=== PATIENT | female | born 1990 ===

== ENCOUNTER 2021-06-24 13:21 | Inpatient (IN) | payer SELFPAY ==
[2021-06-24] MEDS ORDERED: charcoal activated SOLUTION 25 GM/120 ML PO ONE (13:38)
[2021-06-24] MEDS ORDERED: SODIUM CHLORIDE 0.9% 1000 ML 1,000 ML IV ONE ×2 (13:38→14:59)
[2021-06-24] MEDS ORDERED: ETOMIDATE 20 MG/10 ML INJ IV ONE ×2 (14:00→17:11)
[2021-06-24] MEDS ORDERED: ATROPINE 1 MG/ML VIAL IV ONE (14:00)
[2021-06-24] MEDS ORDERED: SUCCINYLCHOLINE CHLORIDE 200 MG/10 ML INJ MDV IV ONE (14:00)
[2021-06-24] MEDS ORDERED: LIP THERAPY VASELINE TP PRN (14:14)
[2021-06-24] MEDS ORDERED: MINERAL OIL/PETROLATUM, WHITE OPHTH OINT 3.5 GM OU PRN (14:14)
[2021-06-24 14:31] LABS: Alanine Aminotransferase 21 units/L (7-56); Albumin 4.4 g/dL (3.9-5); Blood Urea Nitrogen 10 mg/dL (7-17); Hemolysis Index 3
[2021-06-24 14:32] LABS: BUN/Creatinine Ratio 20
[2021-06-24 14:42] LABS: Basophils # (Auto) 0.1 K/mm3 (0.0-0.1); Basophils % (Auto) 0.4 % (0.0-1.8); Eosinophils % (Auto) 0.2 % (0.0-4.3); Hematocrit 42.9 % (30.3-42.9); Hemoglobin 13.9 gm/dl (10.1-14.3); Lymphocytes # (Auto) 2.3 K/mm3 (1.2-5.4); Lymphocytes % (Auto) 12.2 % (13.4-35.0); Mean Corpuscular HGB Conc 32 % (30-34); Mean Corpuscular Volume 77 fl (79-97); Monocytes # (Auto) 0.4 K/mm3 (0.0-0.8); Monocytes % (Auto) 2.4 % (0.0-7.3); Platelet Count 383 K/mm3 (140-440); Red Blood Count 5.58 M/mm3 (3.65-5.03); Red Cell Distribution Width 13.8 % (13.2-15.2)
[2021-06-24] MEDS: LORazepam 2 MG/ML VIAL IV PRN (14:50)
[2021-06-24] MEDS ORDERED: POTASSIUM CHLORIDE 10 MEQ 10 MEQ/100 ML BAG IV ONE (14:59)
[2021-06-24] MEDS ORDERED: LORazepam 100 MG in SODIUM CHLORIDE 0.9% 50 ML, EMPTY BAG 0 ML IV SCH (15:00)
--- NOTE | 2021-06-24 15:15 | XRay Report ---
XR chest 1V ap INDICATION / CLINICAL INFORMATION: ETT placement. COMPARISON: None available. FINDINGS: SUPPORT DEVICES: Endotracheal tube terminates appropriately at the level of the clavicular heads. HEART /PULMONARY VASCULATURE: No significant abnormality. LUNGS / PLEURA: Lungs are clear. No pneumothorax. IMPRESSION: Satisfactory position of endotracheal tube. No acute chest process. Signer Name: Eitan Goins MD Signed: 06/24/2021 3:11 PM Workstation Name: [id number]
[2021-06-24] MEDS: FAMOTIDINE 20 MG/2 ML INJ IV SCH ×2 (15:48→23:47)
[2021-06-24 16:00] LABS: Amphetamine Screen,Urine Negative; Bacteria,Urine 1+ /HPF (Negative); Benzodiazepines Screen,Urine Negative; Bilirubin,Urine NEG (Negative); Blood,Urine SM (Negative); Cannabinoid Screen,Urine Negative; Cocaine Screen,Urine Negative; Color,Urine Yellow (Yellow); Methadone Screen,Urine Negative; Mucus,Urine 1+ /HPF; Opiate Screen,Urine Negative; Protein,Urine <15 mg/dL mg/dL (Negative); Urobilinogen,Urine < 2.0 mg/dL (<2.0)
--- NOTE | 2021-06-24 16:15 | Emergency Department Report ---
History of Present Illness - General Chief Complaint: Overdose Stated Complaint: VOMITING Time Seen by Provider: 06/24/21 13:35 Source: patient Mode of arrival: Wheelchair Limitations: No Limitations - History of Present Illness Initial Comments: Patient is a 30-year-old female who took a overdose of a ant killer was called Ortho [employer] Fire ant killer with an active ingredient is Acephate, an organophsphate. Patient poured some of the granules and a Coca-Cola and drink this as a suicide attempt. Patient initially awake and alert with some mild slurred speech on her arrival and was able to state that she is having trouble with her . Over 5 to 10-minute time. The patient became more more lethargic and was unable to give any further history. Is unknown whether the patient took any other medications at the time of the overdose. Intent: suicide attempt Context: Intentional Overdose: relationship problems Treatments Prior to Arrival: none - Related Data Allergies Allergy/AdvReac Type Severity Reaction Status Date / Time No Known Allergies Allergy Verified 06/24/21 14:24 ED Review of Systems ROS: Stated complaint: VOMITING Other details as noted in HPI Comment: All other systems reviewed and negative ED Physical Exam - General Limitations: No Limitations General appearance: alert, lethargic, other (Patient slowly becoming more lethargic during the history and physical) - Head Head exam: Present: atraumatic, normocephalic - Eye Eye exam: Present: normal appearance, PERRL, EOMI - ENT ENT exam: Present: mucous membranes moist - Neck Neck exam: Present: normal inspection - Respiratory Respiratory exam: Present: normal lung sounds bilaterally. Absent: respiratory distress, wheezes, rales, rhonchi - Cardiovascular Cardiovascular Exam: Present: regular rate, normal rhythm, normal heart sounds. Absent: systolic murmur, diastolic murmur, rubs, gallop - GI/Abdominal GI/Abdominal exam: Present: soft, normal bowel sounds. Absent: distended, tenderness, guarding, rebound - Extremities Exam Extremities exam: Present: normal inspection - Back Exam Back exam: Present: normal inspection - Neurological Exam Neurological exam: Present: alert, oriented X3 - Psychiatric Psychiatric exam: Present: normal affect, normal mood - Skin Skin exam: Present: warm, dry, intact, normal color. Absent: rash ED Course Vital Signs 06/24/21 06/24/21 06/24/21 13:31 14:01 14:15 Temperature 97.5 F L Pulse Rate 109 H 110 H Respiratory 18 20 17 Rate Blood Pressure 136/88 146/91 O2 Sat by Pulse 97 97 98 Oximetry 06/24/21 06/24/21 06/24/21 14:30 14:45 14:51 Temperature Pulse Rate 95 H 111 H 104 H Respiratory 24 13 Rate Blood Pressure 151/91 150/100 153/97 O2 Sat by Pulse 100 100 100 Oximetry 06/24/21 06/24/21 06/24/21 15:00 15:15 15:30 Temperature Pulse Rate 93 H 106 H 110 H Respiratory 17 17 15 Rate Blood Pressure 153/97 153/99 132/88 O2 Sat by Pulse 100 100 100 Oximetry 06/24/21 15:45 Temperature Pulse Rate 103 H Respiratory 16 Rate Blood Pressure 128/88 O2 Sat by Pulse 100 Oximetry - Reevaluation(s) Reevaluation #1: 06/24/21 16:54 Patient very quickly became very lethargic to the point where shaking her aggressively only resulted in her opening her eyes briefly and then closing them again. Patient lungs were clear however her respiratory drive was decreasing slightly. There was worried that the patient would not be able to maintain her own airway and decision was made to intubate the patient. Please see the procedure note. Reevaluation #2: 06/24/21 16:55 Spoke with the scale manager from poison control. The recommendation is to c ontinue to monitor the patient and give supportive care. we are to monitor the patient for bradycardia decreased oxygen saturation increased diarrhea or rails and if any of these persist to call poison control back to get further recommendations. Patient did receive 2 mg of atropine prior to intubation secondary to the fact that the agent she overdosed on his organophosphate. It is possible the patient has not had any increase bronchospasm or increased secretions because she had already received atropine. We will continue to monitor. - Intubation Time Out Performed: Yes Sedative: Etomidate Paralytic: Succinylcholine Laryngoscope: fiberoptic video scope Size: 3 ET Tube Size: 7.5 Tube Secured Depth (cm): 22 Tube Secured Location: lips Tube Placement Confirmation: visualized tube passing t, equal breath sounds bilat, no breath sounds over epi, confirmation by capnometr Patient Tolerated Procedure: well Intubation Complications: none ED Medical Decision Making - Lab Data Result diagrams: 06/24/21 13:38 06/24/21 13:38 Lab Results 06/24/21 06/24/21 06/24/21 Range/Units 13:38 13:38 13:38 WBC 18.6 H (4.5-11.0) K/mm3 RBC 5.58 H (3.65-5.03) M/mm3 Hgb 13.9 (10.1-14.3) gm/dl Hct 42.9 (30.3-42.9) % MCV 77 L (79-97) fl MCH 25 L (28-32) pg MCHC 32 (30-34) % RDW 13.8 (13.2-15.2) % Plt Count 383 (140-440) K/mm3 Lymph % (Auto) 12.2 L (13.4-35.0) % [place] % (Auto) 2.4 (0.0-7.3) % Eos % (Auto) 0.2 (0.0-4.3) % Baso % (Auto) 0.4 (0.0-1.8) % Lymph # (Auto) 2.3 (1.2-5.4) K/mm3 [place] # (Auto) 0.4 (0.0-0.8) K/mm3 Eos # (Auto) 0.0 (0.0-0.4) K/mm3 Baso # (Auto) 0.1 (0.0-0.1) K/mm3 Seg Neutrophils % 84.8 H (40.0-70.0) % Seg Neutrophils # 15.7 H (1.8-7.7) K/mm3 ABG pH (7.350-7.450) pH Units ABG pCO2 mm Hg ABG pO2 (80.0-90.0) mm Hg ABG HCO3 (20.0-26.0) mmol/L ABG O2 Saturation (95.0-99.0) % ABG O2 Content (0.0-44) ABG Base Excess (-2.0-3.0) mmol/L ABG Hemoglobin (12.0-16.0) gm/dl ABG Carboxyhemoglobin (0.0-5.0) % ABG Methemoglobin (0.0-1.5) % Oxyhemoglobin (95.0-99.0) % FiO2 % Sodium 138 (137-145) mmol/L Potassium 2.6 L* (3.6-5.0) mmol/L Chloride 100.5 (98-107) mmol/L Carbon Dioxide 20 L (22-30) mmol/L Anion Gap 20 mmol/L BUN 10 (7-17) mg/dL Creatinine 0.5 L (0.6-1.2) mg/dL Estimated GFR > 60 ml/min BUN/Creatinine Ratio 20 % Glucose 228 H (65-100) mg/dL Calcium 9.0 (8.4-10.2) mg/dL Total Bilirubin 0.40 (0.1-1.2) mg/dL AST 19 (5-40) units/L ALT 21 (7-56) units/L Alkaline Phosphatase 90 (35-129) units/L Total Protein 8.3 H (6.3-8.2) g/dL Albumin 4.4 (3.9-5) g/dL Albumin/Globulin Ratio 1.1 % Lipase 19 (13-60) units/L Urine Color (Yellow) Urine Turbidity (Clear) Urine pH (5.0-7.0) Ur Specific Howard (1.003-1.030) Urine Protein (Negative) mg/dL Urine Glucose (UA) (Negative) mg/dL Urine Ketones (Negative) mg/dL Urine Blood (Negative) Urine Nitrite (Negative) Urine Bilirubin (Negative) Urine Urobilinogen (<2.0) mg/dL Ur Leukocyte Esterase (Negative) Urine WBC (Auto) (0.0-6.0) /HPF Urine RBC (Auto) (0.0-6.0) /HPF U Epithel Cells (Auto) (0-13.0) /HPF Urine Bacteria (Auto) (Negative) /HPF Urine WBC Clumps /HPF Urine Mucus /HPF Urine Yeast (Budding) /HPF Urine HCG, Qual (Negative) Salicylates (2.8-20.0) mg/dL Urine Opiates Screen Urine Methadone Screen Acetaminophen (10.0-30.0) ug/mL Ur Barbiturates Screen Ur Phencyclidine Scrn Ur Amphetamines Screen U Benzodiazepines Scrn Urine Cocaine Screen U Marijuana (THC) Screen Drugs of Abuse Note Plasma/Serum Alcohol (0-0.07) % 06/24/21 06/24/21 06/24/21 Range/Units 13:39 13:57 13:57 WBC (4.5-11.0) K/mm3 RBC (3.65-5.03) M/mm3 Hgb (10.1-14.3) gm/dl Hct (30.3-42.9) % MCV (79-97) fl MCH (28-32) pg MCHC (30-34) % RDW (13.2-15.2) % Plt Count (140-440) K/mm3 Lymph % (Auto) (13.4-35.0) % [place] % (Auto) (0.0-7.3) % Eos % (Auto) (0.0-4.3) % Baso % (Auto) (0.0-1.8) % Lymph # (Auto) (1.2-5.4) K/mm3 [place] # (Auto) (0.0-0.8) K/mm3 Eos # (Auto) (0.0-0.4) K/mm3 Baso # (Auto) (0.0-0.1) K/mm3 Seg Neutrophils % (40.0-70.0) % Seg Neutrophils # (1.8-7.7) K/mm3 ABG pH (7.350-7.450) pH Units ABG pCO2 mm Hg ABG pO2 (80.0-90.0) mm Hg ABG HCO3 (20.0-26.0) mmol/L ABG O2 Saturation (95.0-99.0) % ABG O2 Content (0.0-44) ABG Base Excess (-2.0-3.0) mmol/L ABG Hemoglobin (12.0-16.0) gm/dl ABG Carboxyhemoglobin (0.0-5.0) % ABG Methemoglobin (0.0-1.5) % Oxyhemoglobin (95.0-99.0) % FiO2 % Sodium (137-145) mmol/L Potassium (3.6-5.0) mmol/L Chloride (98-107) mmol/L Carbon Dioxide (22-30) mmol/L Anion Gap mmol/L BUN (7-17) mg/dL Creatinine (0.6-1.2) mg/dL Estimated GFR ml/min BUN/Creatinine Ratio % Glucose (65-100) mg/dL Calcium (8.4-10.2) mg/dL Total Bilirubin (0.1-1.2) mg/dL AST (5-40) units/L ALT (7-56) units/L Alkaline Phosphatase (35-129) units/L Total Protein (6.3-8.2) g/dL Albumin (3.9-5) g/dL Albumin/Globulin Ratio % Lipase (13-60) units/L Urine Color (Yellow) Urine Turbidity (Clear) Urine pH (5.0-7.0) Ur Specific Howard (1.003-1.030) Urine Protein (Negative) mg/dL Urine Glucose (UA) (Negative) mg/dL Urine Ketones (Negative) mg/dL Urine Blood (Negative) Urine Nitrite (Negative) Urine Bilirubin (Negative) Urine Urobilinogen (<2.0) mg/dL Ur Leukocyte Esterase (Negative) Urine WBC (Auto) (0.0-6.0) /HPF Urine RBC (Auto) (0.0-6.0) /HPF U Epithel Cells (Auto) (0-13.0) /HPF Urine Bacteria (Auto) (Negative) /HPF Urine WBC Clumps /HPF Urine Mucus /HPF Urine Yeast (Budding) /HPF Urine HCG, Qual (Negative) Salicylates < 0.3 L (2.8-20.0) mg/dL Urine Opiates Screen Urine Methadone Screen Acetaminophen 5.0 L (10.0-30.0) ug/mL Ur Barbiturates Screen Ur Phencyclidine Scrn Ur Amphetamines Screen U Benzodiazepines Scrn Urine Cocaine Screen U Marijuana (THC) Screen Drugs of Abuse Note Plasma/Serum Alcohol < 0.01 (0-0.07) % 06/24/21 06/24/21 06/24/21 Range/Units 15:37 15:37 16:04 WBC (4.5-11.0) K/mm3 RBC (3.65-5.03) M/mm3 Hgb (10.1-14.3) gm/dl Hct (30.3-42.9) % MCV (79-97) fl MCH (28-32) pg MCHC (30-34) % RDW (13.2-15.2) % Plt Count (140-440) K/mm3 Lymph % (Auto) (13.4-35.0) % [place] % (Auto) (0.0-7.3) % Eos % (Auto) (0.0-4.3) % Baso % (Auto) (0.0-1.8) % Lymph # (Auto) (1.2-5.4) K/mm3 [place] # (Auto) (0.0-0.8) K/mm3 Eos # (Auto) (0.0-0.4) K/mm3 Baso # (Auto) (0.0-0.1) K/mm3 Seg Neutrophils % (40.0-70.0) % Seg Neutrophils # (1.8-7.7) K/mm3 ABG pH 7.324 L (7.350-7.450) pH Units ABG pCO2 39.9 mm Hg ABG pO2 204.2 H (80.0-90.0) mm Hg ABG HCO3 20.3 (20.0-26.0) mmol/L ABG O2 Saturation 99.2 H (95.0-99.0) % ABG O2 Content 18.5 (0.0-44) ABG Base Excess -5.3 L (-2.0-3.0) mmol/L ABG Hemoglobin 13.2 (12.0-16.0) gm/dl ABG Carboxyhemoglobin 1.2 (0.0-5.0) % ABG Methemoglobin 0.6 (0.0-1.5) % Oxyhemoglobin 97.5 (95.0-99.0) % FiO2 21 % Sodium (137-145) mmol/L Potassium (3.6-5.0) mmol/L Chloride (98-107) mmol/L Carbon Dioxide (22-30) mmol/L Anion Gap mmol/L BUN (7-17) mg/dL Creatinine (0.6-1.2) mg/dL Estimated GFR ml/min BUN/Creatinine Ratio % Glucose (65-100) mg/dL Calcium (8.4-10.2) mg/dL Total Bilirubin (0.1-1.2) mg/dL AST (5-40) units/L ALT (7-56) units/L Alkaline Phosphatase (35-129) units/L Total Protein (6.3-8.2) g/dL Albumin (3.9-5) g/dL Albumin/Globulin Ratio % Lipase (13-60) units/L Urine Color Yellow (Yellow) Urine Turbidity Cloudy (Clear) Urine pH 5.0 (5.0-7.0) Ur Specific Howard 1.020 (1.003-1.030) Urine Protein <15 mg/dl (Negative) mg/dL Urine Glucose (UA) >=500 (Negative) mg/dL Urine Ketones 80 (Negative) mg/dL Urine Blood Sm (Negative) Urine Nitrite Neg (Negative) Urine Bilirubin Neg (Negative) Urine Urobilinogen < 2.0 (<2.0) mg/dL Ur Leukocyte Esterase Lg (Negative) Urine WBC (Auto) 42.0 H (0.0-6.0) /HPF Urine RBC (Auto) 102.0 (0.0-6.0) /HPF U Epithel Cells (Auto) 31.0 H (0-13.0) /HPF Urine Bacteria (Auto) 1+ (Negative) /HPF Urine WBC Clumps Few /HPF Urine Mucus 1+ /HPF Urine Yeast (Budding) 2+ /HPF Urine HCG, Qual Negative (Negative) Salicylates (2.8-20.0) mg/dL Urine Opiates Screen Negative Urine Methadone Screen Negative Acetaminophen (10.0-30.0) ug/mL Ur Barbiturates Screen Negative Ur Phencyclidine Scrn Negative Ur Amphetamines Screen Negative U Benzodiazepines Scrn Negative Urine Cocaine Screen Negative U Marijuana (THC) Screen Negative Drugs of Abuse Note Disclamer Plasma/Serum Alcohol (0-0.07) % - EKG Data -: EKG Interpreted by Wi EKG shows normal: sinus rhythm, axis, intervals, QRS complexes, ST-T waves Rate: normal - EKG Data Interpretation: normal EKG - Radiology Data XR chest 1V ap INDICATION / CLINICAL INFORMATION: ETT placement. COMPARISON: None available. FINDINGS: SUPPORT DEVICES: Endotracheal tube terminates appropriately at the level of the clavicular heads. HEART /PULMONARY VASCULATURE: No significant abnormality. LUNGS / PLEURA: Lungs are clear. No pneumothorax. IMPRESSION: Satisfactory position of endotracheal tube. No acute chest process. Signer Name: Eitan Goins MD Signed: 06/24/2021 3:11 PM Workstation Name: [id number] - Medical Decision Making Patient is a 25-year-old female who took a overdose of a [id number] fire ant killer which has active ingredient which is organophosphate. Patient was intubated secondary to being extremely lethargic. She did receive atropine and up into the time of the patient's admission this is still not had any episodes of bradycardia or increased bronchospasm and fluid in the lungs. Patient is on ventilator with 8 of PEEP which also may be helping with the patient's respiratory status. Patient did have one episode of diarrhea and will continue to monitor. We will call poison control back if the patient becomes bradycardic develops Rales, has decreased O2 saturation on ventilator or requires increase PEEP. Patient mated to the ICU. Critical Care Time: Yes (30) Critical care attestation.: If time is entered above; I have spent that time in minutes in the direct care of this critically ill patient, excluding procedure time. ED Disposition Clinical Impression: Organophosphorus anticholinesterase overdose Qualifiers: Encounter type: initial encounter Injury intent: intentional self-harm Qualified Code(s): T44.0X2A - Poisoning by anticholinesterase agents, intentional self-harm, initial encounter Disposition: ADMITTED INPATIENT Is pt being admited?: Yes Does the pt Need Aspirin: No Condition: Stable Time of Disposition: 17:06
[2021-06-24 16:20] LABS: ABG Base Excess -5.3 mmol/L (-2.0-3.0); ABG HCO3 20.3 mmol/L (20.0-26.0); ABG Methemoglobin 0.6 % (0.0-1.5); ABG Oxygen Saturation 99.2 % (95.0-99.0); ABG PCO2 39.9 mm Hg; ABG PH 7.324 pH Units (7.350-7.450); ABG PO2 204.2 mm Hg (80.0-90.0)
[2021-06-24 16:22] LABS: HCG Qualitative,Urine Negative (Negative)
--- NOTE | 2021-06-24 17:00 | XRay Report ---
XR chest 1V ap INDICATION / CLINICAL INFORMATION: tube placement. COMPARISON: 06/24/2021 FINDINGS: SUPPORT DEVICES: Endotracheal tube terminates approximately 3.5 cm above the cindy. HEART /PULMONARY VASCULATURE: No significant abnormality. LUNGS / PLEURA: No significant pulmonary or pleural abnormality. No pneumothorax. IMPRESSION: Satisfactory position of endotracheal tube. Signer Name: Eitan Goins MD Signed: 06/24/2021 4:55 PM Workstation Name: [id number]
[2021-06-24] MEDS ORDERED: SUCCINYLCHOLINE CHLORIDE 200 MG/10 ML INJ MDV ONE (17:11)
--- NOTE | 2021-06-24 17:35 | History and Physical Report ---
History of Present Illness Date of examination: 06/24/21 Date of admission: 06/24/21 Chief complaint: Ingestion of ant killer 2 hrs ago History of present illness: 30-year-old female with no significant past medical history apparently took a overdose of ant killer called [employer]o [employer] fire ant killer with an active ingredient called acephate which is a organophosphate. Patient reports some unknown quantity of intake of water and drank the contaminated Coke in an attempt to commit suicide. Patient initially awake and alert with some slurred speech on arrival. Patient was stating that she is having trouble with her because of which she did anterior overdose as part of an argument. Patient became more lethargic in the emergency room and was unable to give further history when the ER physician decided to intubate the patient for protection of airway. Poison control was called. IV atropine given to prevent bradycardia and excessive secretions. Patient also has excessive secretions. Patient was intubated in the emergency room. No fever or chills. Past History Past Medical History: No medical history Past Surgical History: No surgical history Social history: lives with family, full code Family history: hypertension Medications and Allergies Allergies Allergy/AdvReac Type Severity Reaction Status Date / Time No Known Allergies Allergy Verified 06/24/21 14:24 Active Meds: Active Medications Famotidine (Famotidine 20 Mg/2 Ml Inj) 20 mg IV BID [facility] Last Admin: 06/24/21 15:48 Dose: 20 mg Documented by: Hydrophilic Ointment (Lip Therapy Vaseline) 1 applic TP Q2HR PRN PRN Reason: Dry Lips Lorazepam 100 mg/ Sodium Chloride/ Miscellaneous Information 100 mls @ 1 mls/hr IV TITR [facility]; Protocol Last Admin: 06/24/21 14:55 Dose: 1 mg/hr, 1 mls/hr Documented by: Propofol (Diprivan 10 Mg/Ml) 1,000 mg in 100 mls @ 3.402 mls/hr IV TITR [facility]; Protocol Last Titration: 06/24/21 16:05 Dose: 45 mcg/kg/min, 30.617 mls/hr Documented by: Lorazepam (Lorazepam 2 Mg/Ml Vial) 2 mg IV Q10MIN PRN PRN Reason: Agitation Last Admin: 06/24/21 14:50 Dose: 2 mg Documented by: Multi-Ingred Cream/Lotion/Oil/Oint (Mineral Oil/Petrolatum, White Ophth Oint 3.5 Gm) 1 applic OU Q4HR PRN PRN Reason: Dry Eye(s) Senna/Docusate Sodium (Sennosides/Docusate Sodium 8.6/50 Mg Tab) 1 tab FEEDTUBE BID [facility] Review of Systems ROS unobtainable: due to endotracheal tube All systems: negative Constitutional: no weight loss, no weight gain, no fever, no chills Breasts: deferred Cardiovascular: shortness of breath Gastrointestinal: nausea, vomiting Integumentary: no rash, no pruritis, no redness, no sores, no wounds, no jaundice, no boils, no blisters Neurological: confusion, no seizures, no syncope Psychiatric: anxiety, disorientation, depression, other (Suicidal) Exam - Constitutional Vitals: Temp Pulse Resp BP Pulse Ox 97.5 F L 103 H 16 128/88 100 06/24/21 13:31 06/24/21 15:45 06/24/21 15:45 06/24/21 15:45 06/24/21 15:45 General appearance: Present: no acute distress, well-nourished - EENT Eyes: Present: miosis ENT: clear oral mucosa - Neck Neck: Present: supple, normal ROM - Respiratory Respiratory effort: normal Respiratory: bilateral: CTA, rhonchi - Cardiovascular Heart rate: 110 Rhythm: regular Heart Sounds: Present: S1 & S2. Absent: rub, click - Extremities Extremities: pulses symmetrical, No edema Peripheral Pulses: within normal limits - Abdominal General gastrointestinal: Present: soft, non-tender, non-distended, normal bowel sounds Female genitourinary: Present: normal - Integumentary Integumentary: Present: clear, warm, dry - Musculoskeletal Musculoskeletal: generalized weakness - Psychiatric Psychiatric: other (Patient intubated) - Neurologic Neurologic: moves all extremities, other (Patient intubated) - Allied Health Allied health notes reviewed: nursing, case management Results - Labs CBC & Chem 7: 06/25/21 05:48 06/25/21 00:03 Labs: Laboratory Last Values WBC 18.6 K/mm3 (4.5-11.0) H 06/24/21 13:38 RBC 5.58 M/mm3 (3.65-5.03) H 06/24/21 13:38 Hgb 13.9 gm/dl (10.1-14.3) 06/24/21 13:38 Hct 42.9 % (30.3-42.9) 06/24/21 13:38 MCV 77 fl (79-97) L 06/24/21 13:38 MCH 25 pg (28-32) L 06/24/21 13:38 MCHC 32 % (30-34) 06/24/21 13:38 RDW 13.8 % (13.2-15.2) 06/24/21 13:38 Plt Count 383 K/mm3 (140-440) 06/24/21 13:38 Lymph % (Auto) 12.2 % (13.4-35.0) L 06/24/21 13:38 [place] % (Auto) 2.4 % (0.0-7.3) 06/24/21 13:38 Eos % (Auto) 0.2 % (0.0-4.3) 06/24/21 13:38 Baso % (Auto) 0.4 % (0.0-1.8) 06/24/21 13:38 Lymph # (Auto) 2.3 K/mm3 (1.2-5.4) 06/24/21 13:38 [place] # (Auto) 0.4 K/mm3 (0.0-0.8) 06/24/21 13:38 Eos # (Auto) 0.0 K/mm3 (0.0-0.4) 06/24/21 13:38 Baso # (Auto) 0.1 K/mm3 (0.0-0.1) 06/24/21 13:38 Seg Neutrophils % 84.8 % (40.0-70.0) H 06/24/21 13:38 Seg Neutrophils # 15.7 K/mm3 (1.8-7.7) H 06/24/21 13:38 ABG pH 7.324 pH Units (7.350-7.450) L 06/24/21 16:04 ABG pCO2 39.9 mm Hg 06/24/21 16:04 ABG pO2 204.2 mm Hg (80.0-90.0) H 06/24/21 16:04 ABG HCO3 20.3 mmol/L (20.0-26.0) 06/24/21 16:04 ABG O2 Saturation 99.2 % (95.0-99.0) H 06/24/21 16:04 ABG O2 Content 18.5 (0.0-44) 06/24/21 16:04 ABG Base Excess -5.3 mmol/L (-2.0-3.0) L 06/24/21 16:04 ABG Hemoglobin 13.2 gm/dl (12.0-16.0) 06/24/21 16:04 ABG Carboxyhemoglobin 1.2 % (0.0-5.0) 06/24/21 16:04 ABG Methemoglobin 0.6 % (0.0-1.5) 06/24/21 16:04 Oxyhemoglobin 97.5 % (95.0-99.0) 06/24/21 16:04 FiO2 21 % 06/24/21 16:04 Sodium 138 mmol/L (137-145) 06/24/21 13:38 Potassium 2.6 mmol/L (3.6-5.0) L* 06/24/21 13:38 Chloride 100.5 mmol/L (98-107) 06/24/21 13:38 Carbon Dioxide 20 mmol/L (22-30) L 06/24/21 13:38 Anion Gap 20 mmol/L 06/24/21 13:38 BUN 10 mg/dL (7-17) 06/24/21 13:38 Creatinine 0.5 mg/dL (0.6-1.2) L 06/24/21 13:38 Estimated GFR > 60 ml/min 06/24/21 13:38 BUN/Creatinine Ratio 20 % 06/24/21 13:38 Glucose 228 mg/dL (65-100) H 06/24/21 13:38 Calcium 9.0 mg/dL (8.4-10.2) 06/24/21 13:38 Total Bilirubin 0.40 mg/dL (0.1-1.2) 06/24/21 13:38 AST 19 units/L (5-40) 06/24/21 13:38 ALT 21 units/L (7-56) 06/24/21 13:38 Alkaline Phosphatase 90 units/L (35-129) 06/24/21 13:38 Total Protein 8.3 g/dL (6.3-8.2) H 06/24/21 13:38 Albumin 4.4 g/dL (3.9-5) 06/24/21 13:38 Albumin/Globulin Ratio 1.1 % 06/24/21 13:38 Lipase 19 units/L (13-60) 06/24/21 13:38 Urine Color Yellow (Yellow) 06/24/21 15:37 Urine Turbidity Cloudy (Clear) 06/24/21 15:37 Urine pH 5.0 (5.0-7.0) 06/24/21 15:37 Ur Specific [place] 1.020 (1.003-1.030) 06/24/21 15:37 Urine Protein <15 mg/dl mg/dL (Negative) 06/24/21 15:37 Urine Glucose (UA) >=500 mg/dL (Negative) 06/24/21 15:37 Urine Ketones 80 mg/dL (Negative) 06/24/21 15:37 Urine Blood Sm (Negative) 06/24/21 15:37 Urine Nitrite Neg (Negative) 06/24/21 15:37 Urine Bilirubin Neg (Negative) 06/24/21 15:37 Urine Urobilinogen < 2.0 mg/dL (<2.0) 06/24/21 15:37 Ur Leukocyte Esterase Lg (Negative) 06/24/21 15:37 Urine WBC (Auto) 42.0 /HPF (0.0-6.0) H 06/24/21 15:37 Urine RBC (Auto) 102.0 /HPF (0.0-6.0) 06/24/21 15:37 U Epithel Cells (Auto) 31.0 /HPF (0-13.0) H 06/24/21 15:37 Urine Bacteria (Auto) 1+ /HPF (Negative) 06/24/21 15:37 Urine WBC Clumps Few /HPF 06/24/21 15:37 Urine Mucus 1+ /HPF 06/24/21 15:37 Urine Yeast (Budding) 2+ /HPF 06/24/21 15:37 Urine HCG, Qual Negative (Negative) 06/24/21 15:37 Salicylates < 0.3 mg/dL (2.8-20.0) L 06/24/21 13:57 Urine Opiates Screen Negative 06/24/21 15:37 Urine Methadone Screen Negative 06/24/21 15:37 Acetaminophen 5.0 ug/mL (10.0-30.0) L 06/24/21 13:57 Ur Barbiturates Screen Negative 06/24/21 15:37 Ur Phencyclidine Scrn Negative 06/24/21 15:37 Ur Amphetamines Screen Negative 06/24/21 15:37 U Benzodiazepines Scrn Negative 06/24/21 15:37 Urine Cocaine Screen Negative 06/24/21 15:37 U Marijuana (THC) Screen Negative 06/24/21 15:37 Drugs of Abuse Note Disclamer 06/24/21 15:37 Plasma/Serum Alcohol < 0.01 % (0-0.07) 06/24/21 13:39 Short CBC 06/24/21 06/25/21 Range/Units 13:38 05:48 WBC 18.6 H 11.6 H (4.5-11.0) K/mm3 Hgb 13.9 13.3 (10.1-14.3) gm/dl Hct 42.9 41.6 (30.3-42.9) % Plt Count 383 397 (140-440) K/mm3 [facility] 06/24/21 06/25/21 13:38 00:03 Sodium 138 141 Potassium 2.6 L* 4.2 D Chloride 100.5 105.6 Carbon Dioxide 20 L 19 L BUN 10 8 Creatinine 0.5 L 0.6 Glucose 228 H 108 H Calcium 9.0 9.6 Liver Function 06/24/21 Range/Units 13:38 Total Bilirubin 0.40 (0.1-1.2) mg/dL AST 19 (5-40) units/L ALT 21 (7-56) units/L Alkaline Phosphatase 90 (35-129) units/L Albumin 4.4 (3.9-5) g/dL Urine 06/24/21 Range/Units 15:37 Urine Color Yellow (Yellow) Urine pH 5.0 (5.0-7.0) Ur Specific [place] 1.020 (1.003-1.030) Urine Protein <15 mg/dl (Negative) mg/dL Urine Glucose (UA) >=500 (Negative) mg/dL - Imaging and Cardiology EKG: report reviewed (Sinus rhythm heart rate of 93/min no acute ST-T wave changes) Chest x-ray: report reviewed (Endotracheal tube in place, suspect left basilar pneumonia) Assessment and Plan Assessment and plan: Critical care statement The high probability OF a clinically significant sudden or life-threatening deterioration of the cardiorespiratory system and endocrine system required my full and direct attention, intervention and postoperative management. The aggregate critical care time was 40 minutes. The time is in addition to time spent performing reported procedures but includes the followin: Data review and interpretation 2: Patient assessment and monitoring of vital signs 3: Documentation 4:: Medication orders and management Advance Directives: Yes (Full code) VTE prophylaxis?: Chemical Plan of care discussed with patient/family: Yes - Patient Problems (1) Organophosphorus anticholinesterase overdose Current Visit: Yes Status: Acute Qualifiers: Encounter type: initial encounter Injury intent: intentional self-harm Qualified Code(s): T44.0X2A - Poisoning by anticholinesterase agents, intentional self-harm, initial encounter Plan to address problem: Poison control was called IV atropine for now Patient intubated for protection of airway IV fluids Repeat chemistries every 6-8 hours Vent management (2) Sepsis Current Visit: Yes Status: Acute Plan to address problem: Leukocytosis present Left basilar pneumonia is present IV Rocephin and Zithromax initiated (3) Left lower lobe pneumonia Current Visit: Yes Status: Acute Plan to address problem: Possible aspiration Patient initiated on Rocephin and azithromycin (4) Acute respiratory failure with hypoxia Current Visit: Yes Status: Acute Plan to address problem: Patient intubated for protection of airway Vent management (5) Hypokalemia Current Visit: Yes Status: Acute Plan to address problem: Supplemented IV potassium also given (6) UTI (urinary tract infection) Current Visit: Yes Status: Acute Qualifiers: Urinary tract infection type: acute cystitis Plan to address problem: IV Rocephin pending cultures (7) Hyperglycemia Current Visit: Yes Status: Acute Plan to address problem: Possible type 2 diabetes Check hemoglobin A1c coverage for now (8) DVT prophylaxis Current Visit: Yes Status: Acute Plan to address problem: On anticoagulation and GI prophylaxis
[2021-06-24] MEDS ORDERED: MORPHINE 2 MG/1 ML INJ IV PRN (17:39)
[2021-06-24] MEDS ORDERED: ACETAMINOPHEN 650 MG RECT SUPP PR PRN (17:39)
[2021-06-24] MEDS ORDERED: ATROPINE 1 MG/ML VIAL IV PRN (17:42)
[2021-06-24] MEDS: ENOXAPARIN 40 MG/0.4 ML INJ SUB-Q SCH (18:33)
[2021-06-24] MEDS: SENNOSIDES/DOCUSATE SODIUM 8.6/50 MG TAB FEEDTUBE SCH (23:47)
[2021-06-25 01:20] LABS: Blood Urea Nitrogen 8 mg/dL (7-17); Calcium 9.6 mg/dL (8.4-10.2); Hemolysis Index 11
[2021-06-25 01:51] LABS: BUN/Creatinine Ratio 13
[2021-06-25] MEDS ORDERED: METOPROLOL TARTRATE 5 MG/5 ML INJ IV ONE ×2 (02:44→05:30)
--- NOTE | 2021-06-25 03:57 | XRay Report ---
CHEST 1 VIEW 06/25/2021 2:35 AM INDICATION / CLINICAL INFORMATION: follow up respiratory failure. COMPARISON: Previous day. FINDINGS: SUPPORT DEVICES: Unchanged. HEART / MEDIASTINUM: No significant abnormality. LUNGS / PLEURA: Right lung clear. Retrocardiac opacity on the left. No pneumothorax. ADDITIONAL FINDINGS: No significant additional findings. IMPRESSION: Suspect left basilar pneumonia. Signer Name: Larry George MD Signed: 06/25/2021 3:53 AM Workstation Name: [id number]
[2021-06-25 06:18] LABS: Basophils % (Auto) 0.1 % (0.0-1.8); Eosinophils % (Auto) 0.1 % (0.0-4.3); Hematocrit 41.6 % (30.3-42.9); Hemoglobin 13.3 gm/dl (10.1-14.3); Lymphocytes # (Auto) 1.2 K/mm3 (1.2-5.4); Lymphocytes % (Auto) 10.6 % (13.4-35.0); Mean Corpuscular HGB Conc 32 % (30-34); Mean Corpuscular Volume 79 fl (79-97); Monocytes # (Auto) 1.1 K/mm3 (0.0-0.8); Monocytes % (Auto) 9.9 % (0.0-7.3); Platelet Count 397 K/mm3 (140-440); Red Cell Distribution Width 14.1 % (13.2-15.2)
[2021-06-25 06:45] LABS: Alanine Aminotransferase 18 units/L (7-56); Albumin 4.2 g/dL (3.9-5); Blood Urea Nitrogen 9 mg/dL (7-17); Calcium 9.6 mg/dL (8.4-10.2); Hemolysis Index 4
[2021-06-25 06:49] LABS: BUN/Creatinine Ratio 13
[2021-06-25] MEDS: D5W/0.9% NACL 1,000 ML IV SCH (09:08)
[2021-06-25] MEDS: FAMOTIDINE 20 MG/2 ML INJ IV SCH ×2 (09:12→21:27)
[2021-06-25] MEDS: ENOXAPARIN 40 MG/0.4 ML INJ SUB-Q SCH (09:12)
[2021-06-25] MEDS: SENNOSIDES/DOCUSATE SODIUM 8.6/50 MG TAB FEEDTUBE SCH ×2 (09:13→21:27)
--- NOTE | 2021-06-25 12:37 | Consultation ---
History of Present Illness - Reason for Consult Consult date: 06/25/21 Reason for consult: OD - Chief Complaint Chief complaint: Ingestion of ant killer 2 hrs ago - History of Present Psychiatric Illness Per Note: 30-year-old female with no significant past medical history apparently took a overdose of ant killer called Ortho [employer] fire ant killer with an active ingredient called acephate which is a organophosphate. Patient reports some unknown quantity of intake of water and drank the contaminated Coke in an attempt to commit suicide. Patient initially awake and alert with some slurred speech on arrival. Patient was stating that she is having trouble with her because of which she did anterior overdose as part of an argument. Patient became more lethargic in the emergency room and was unable to give further history when the ER physician decided to intubate the patient for protection of airway. Poison control was called. IV atropine given to prevent bradycardia and excessive secretions. Patient also has excessive secretions. Patient was intubated in the emergency room. No fever or chills. The patient was seen today. She is intubated; unable to participate in assessment. PAST PSYCHIATRIC HISTORY- Unable to assess PAST MEDICAL HISTORY: Unable to assess Family Psychiatric History: None reported or documented SOCIAL HISTORY-Unable to assess REVIEW OF SYSTEMS-Unable to assess MENTAL STATUS EXAMINATION-Unable to assess Assessment (1) Major depressive disorder (2) (3) Plan continue 1013 Sitter: Defer to primary Medical: Per primary Disposition: Recommend acute inpatient psychiatric treatment Will follow for medication management Case staffed with Dr. Angelo Medications and Allergies Allergies Medications and Allergies Allergies Allergy/AdvReac Type Severity Reaction Status Date / Time No Known Allergies Allergy Verified 06/24/21 14:24 Active Meds: Active Medications Acetaminophen (Acetaminophen 650 Mg Rect Supp) 650 mg TN Q4H PRN PRN Reason: Pain MILD(1-3)/Fever >100.5/MOE Atropine Sulfate (Atropine 1 Mg/Ml Vial) 1 mg IV Q6H PRN PRN Reason: Bradycardia Enoxaparin Sodium (Enoxaparin 40 Mg/0.4 Ml Inj) 40 mg SUB-Q QDAY [facility] Last Admin: 06/25/21 09:12 Dose: 40 mg Documented by: Famotidine (Famotidine 20 Mg/2 Ml Inj) 20 mg IV BID [facility] Last Admin: 06/25/21 09:12 Dose: 20 mg Documented by: Hydromorphone HCl (Hydromorphone 1 Mg/1 Ml Inj) 0.5 mg IV Q3H PRN PRN Reason: Pain , Severe (7-10) Hydrophilic Ointment (Lip Therapy Vaseline) 1 applic TP Q2HR PRN PRN Reason: Dry Lips Lorazepam 100 mg/ Sodium Chloride/ Miscellaneous Information 100 mls @ 1 mls/hr IV TITR [facility]; Protocol Last Admin: 06/24/21 14:55 Dose: 1 mg/hr, 1 mls/hr Documented by: Propofol (Diprivan 10 Mg/Ml) 1,000 mg in 100 mls @ 3.402 mls/hr IV TITR K[facility]Y; Protocol Last Admin: 06/25/21 10:11 Dose: 50 mcg/kg/min, 34.019 mls/hr Documented by: Dextrose/Sodium Chloride (D5ns) 1,000 mls @ 125 mls/hr IV DIRECT [facility] Last Admin: 06/25/21 09:08 Dose: 125 mls/hr Documented by: Lorazepam (Lorazepam 2 Mg/Ml Vial) 2 mg IV Q10MIN PRN PRN Reason: Agitation Last Admin: 06/24/21 14:50 Dose: 2 mg Documented by: Morphine Sulfate (Morphine 2 Mg/1 Ml Inj) 2 mg IV Q4H PRN PRN Reason: Pain, Moderate (4-6) Multi-Ingred Cream/Lotion/Oil/Oint (Mineral Oil/Petrolatum, White Ophth Oint 3.5 Gm) 1 applic OU Q4HR PRN PRN Reason: Dry Eye(s) Ondansetron HCl (Ondansetron 4 Mg/2 Ml Inj) 4 mg IV Q8H PRN PRN Reason: Nausea And Vomiting Senna/Docusate Sodium (Sennosides/Docusate Sodium 8.6/50 Mg Tab) 1 tab FEEDTUBE BID [facility] Last Admin: 06/25/21 09:13 Dose: Not Given Documented by: Sodium Chloride (Sodium Chloride 0.9% 10 Ml Flush Syringe) 10 ml IV BID [facility] Last Admin: 06/25/21 09:13 Dose: 10 ml Documented by: Sodium Chloride (Sodium Chloride 0.9% 10 Ml Flush Syringe) 10 ml IV PRN PRN PRN Reason: LINE FLUSH Mental Status Exam - Vital signs Last Vital Signs Temp 98.8 F 06/25/21 12:29 Pulse 113 H 06/25/21 12:14 Resp 16 06/25/21 12:00 BP 146/96 06/25/21 12:14 Pulse Ox 100 06/25/21 12:14 Results Result Diagrams: 06/25/21 05:48 06/25/21 05:48 Abnormal lab results 06/24/21 06/24/21 06/24/21 Range/Units 13:38 13:38 13:57 WBC 18.6 H (4.5-11.0) K/mm3 RBC 5.58 H (3.65-5.03) M/mm3 MCV 77 L (79-97) fl MCH 25 L (28-32) pg Lymph % (Auto) 12.2 L (13.4-35.0) % [place] % (Auto) (0.0-7.3) % [place] # (Auto) (0.0-0.8) K/mm3 Seg Neutrophils % 84.8 H (40.0-70.0) % Seg Neutrophils # 15.7 H (1.8-7.7) K/mm3 ABG pH (7.350-7.450) pH Units POC ABG pO2 (83-108) mmHg ABG pO2 (80.0-90.0) mm Hg ABG O2 Saturation (95.0-99.0) % ABG Base Excess (-2.0-3.0) mmol/L ABG Oxyhemoglobin (94-98) ABG Glucose (65-95) mg/dL Carboxyhemoglobin (0.5-1.5) Potassium 2.6 L* (3.6-5.0) mmol/L Carbon Dioxide 20 L (22-30) mmol/L Creatinine 0.5 L (0.6-1.2) mg/dL Glucose 228 H (65-100) mg/dL POC Glucose (70-105) mg/dL Total Protein 8.3 H (6.3-8.2) g/dL Arterial Blood Glucose (65-95) mg/dL Urine WBC (Auto) (0.0-6.0) /HPF U Epithel Cells (Auto) (0-13.0) /HPF Salicylates < 0.3 L (2.8-20.0) mg/dL Acetaminophen (10.0-30.0) ug/mL 06/24/21 06/24/21 06/24/21 Range/Units 13:57 15:37 16:04 WBC (4.5-11.0) K/mm3 RBC (3.65-5.03) M/mm3 MCV (79-97) fl MCH (28-32) pg Lymph % (Auto) (13.4-35.0) % [place] % (Auto) (0.0-7.3) % [place] # (Auto) (0.0-0.8) K/mm3 Seg Neutrophils % (40.0-70.0) % Seg Neutrophils # (1.8-7.7) K/mm3 ABG pH 7.324 L (7.350-7.450) pH Units POC ABG pO2 (83-108) mmHg ABG pO2 204.2 H (80.0-90.0) mm Hg ABG O2 Saturation 99.2 H (95.0-99.0) % ABG Base Excess -5.3 L (-2.0-3.0) mmol/L ABG Oxyhemoglobin (94-98) ABG Glucose (65-95) mg/dL Carboxyhemoglobin (0.5-1.5) Potassium (3.6-5.0) mmol/L Carbon Dioxide (22-30) mmol/L Creatinine (0.6-1.2) mg/dL Glucose (65-100) mg/dL POC Glucose (70-105) mg/dL Total Protein (6.3-8.2) g/dL Arterial Blood Glucose (65-95) mg/dL Urine WBC (Auto) 42.0 H (0.0-6.0) /HPF U Epithel Cells (Auto) 31.0 H (0-13.0) /HPF Salicylates (2.8-20.0) mg/dL Acetaminophen 5.0 L (10.0-30.0) ug/mL 06/24/21 06/25/21 06/25/21 Range/Units 23:15 00:03 03:18 WBC (4.5-11.0) K/mm3 RBC (3.65-5.03) M/mm3 MCV (79-97) fl MCH (28-32) pg Lymph % (Auto) (13.4-35.0) % [place] % (Auto) (0.0-7.3) % [place] # (Auto) (0.0-0.8) K/mm3 Seg Neutrophils % (40.0-70.0) % Seg Neutrophils # (1.8-7.7) K/mm3 ABG pH (7.350-7.450) pH Units POC ABG pO2 177.1 H (83-108) mmHg ABG pO2 (80.0-90.0) mm Hg ABG O2 Saturation (95.0-99.0) % ABG Base Excess (-2.0-3.0) mmol/L ABG Oxyhemoglobin 99.0 H (94-98) ABG Glucose 213 H (65-95) mg/dL Carboxyhemoglobin 0.1 L (0.5-1.5) Potassium (3.6-5.0) mmol/L Carbon Dioxide 19 L (22-30) mmol/L Creatinine (0.6-1.2) mg/dL Glucose 108 H (65-100) mg/dL POC Glucose 107 H (70-105) mg/dL Total Protein (6.3-8.2) g/dL Arterial Blood Glucose 213 H (65-95) mg/dL Urine WBC (Auto) (0.0-6.0) /HPF U Epithel Cells (Auto) (0-13.0) /HPF Salicylates (2.8-20.0) mg/dL Acetaminophen (10.0-30.0) ug/mL 06/25/21 06/25/21 Range/Units 05:48 05:48 WBC 11.6 H (4.5-11.0) K/mm3 RBC 5.30 H (3.65-5.03) M/mm3 MCV (79-97) fl MCH 25 L (28-32) pg Lymph % (Auto) 10.6 L (13.4-35.0) % [place] % (Auto) 9.9 H (0.0-7.3) % [place] # (Auto) 1.1 H (0.0-0.8) K/mm3 Seg Neutrophils % 79.3 H (40.0-70.0) % Seg Neutrophils # 9.2 H (1.8-7.7) K/mm3 ABG pH (7.350-7.450) pH Units POC ABG pO2 (83-108) mmHg ABG pO2 (80.0-90.0) mm Hg ABG O2 Saturation (95.0-99.0) % ABG Base Excess (-2.0-3.0) mmol/L ABG Oxyhemoglobin (94-98) ABG Glucose (65-95) mg/dL Carboxyhemoglobin (0.5-1.5) Potassium (3.6-5.0) mmol/L Carbon Dioxide 20 L (22-30) mmol/L Creatinine (0.6-1.2) mg/dL Glucose 106 H (65-100) mg/dL POC Glucose (70-105) mg/dL Total Protein (6.3-8.2) g/dL Arterial Blood Glucose (65-95) mg/dL Urine WBC (Auto) (0.0-6.0) /HPF U Epithel Cells (Auto) (0-13.0) /HPF Salicylates (2.8-20.0) mg/dL Acetaminophen (10.0-30.0) ug/mL All other labs normal.
--- NOTE | 2021-06-25 12:40 | Consultation ---
History of Present Illness Consult date: 06/25/21 Requesting physician: KYLE GUILLAUME Reason for consult: other (Possible Organophosphate overdose) History of present illness: PULMONARY/CCM CONSULT NOTE (Full dictation # [id number]) Please see dictated notes for full details Past History Past Medical History: No medical history Past Surgical History: No surgical history Social history: lives with family, full code Family history: hypertension Medications and Allergies Allergies Allergy/AdvReac Type Severity Reaction Status Date / Time No Known Allergies Allergy Verified 06/24/21 14:24 Active Meds: Active Medications Acetaminophen (Acetaminophen 650 Mg Rect Supp) 650 mg OR Q4H PRN PRN Reason: Pain MILD(1-3)/Fever >100.5/MOE Atropine Sulfate (Atropine 1 Mg/Ml Vial) 1 mg IV Q6H PRN PRN Reason: Bradycardia Enoxaparin Sodium (Enoxaparin 40 Mg/0.4 Ml Inj) 40 mg SUB-Q QDAY KAREY Last Admin: 06/25/21 09:12 Dose: 40 mg Documented by: Famotidine (Famotidine 20 Mg/2 Ml Inj) 20 mg IV BID KAREY Last Admin: 06/25/21 09:12 Dose: 20 mg Documented by: Hydromorphone HCl (Hydromorphone 1 Mg/1 Ml Inj) 0.5 mg IV Q3H PRN PRN Reason: Pain , Severe (7-10) Hydrophilic Ointment (Lip Therapy Vaseline) 1 applic TP Q2HR PRN PRN Reason: Dry Lips Lorazepam 100 mg/ Sodium Chloride/ Miscellaneous Information 100 mls @ 1 mls/hr IV TITR KAREY; Protocol Last Admin: 06/24/21 14:55 Dose: 1 mg/hr, 1 mls/hr Documented by: Propofol (Diprivan 10 Mg/Ml) 1,000 mg in 100 mls @ 3.402 mls/hr IV TITR KAREY; Protocol Last Admin: 06/25/21 10:11 Dose: 50 mcg/kg/min, 34.019 mls/hr Documented by: Dextrose/Sodium Chloride (D5ns) 1,000 mls @ 125 mls/hr IV DIRECT KAREY Last Admin: 06/25/21 09:08 Dose: 125 mls/hr Documented by: Lorazepam (Lorazepam 2 Mg/Ml Vial) 2 mg IV Q10MIN PRN PRN Reason: Agitation Last Admin: 06/24/21 14:50 Dose: 2 mg Documented by: Morphine Sulfate (Morphine 2 Mg/1 Ml Inj) 2 mg IV Q4H PRN PRN Reason: Pain, Moderate (4-6) Multi-Ingred Cream/Lotion/Oil/Oint (Mineral Oil/Petrolatum, White Ophth Oint 3.5 Gm) 1 applic OU Q4HR PRN PRN Reason: Dry Eye(s) Ondansetron HCl (Ondansetron 4 Mg/2 Ml Inj) 4 mg IV Q8H PRN PRN Reason: Nausea And Vomiting Senna/Docusate Sodium (Sennosides/Docusate Sodium 8.6/50 Mg Tab) 1 tab FEEDTUBE BID [facility] Last Admin: 06/25/21 09:13 Dose: Not Given Documented by: Sodium Chloride (Sodium Chloride 0.9% 10 Ml Flush Syringe) 10 ml IV BID [facility] Last Admin: 06/25/21 09:13 Dose: 10 ml Documented by: Sodium Chloride (Sodium Chloride 0.9% 10 Ml Flush Syringe) 10 ml IV PRN PRN PRN Reason: LINE FLUSH Physical Examination Vital signs: Vital Signs Temp Pulse Resp BP Pulse Ox 97.5 F L 109 H 18 136/88 97 06/24/21 13:31 06/24/21 13:31 06/24/21 13:31 06/24/21 13:31 06/24/21 13:31 Results - Laboratory Findings CBC and BMP: 06/25/21 05:48 06/25/21 05:48 ABG ABG pH 7.328 (7.320-7.450) 06/25/21 03:18 POC ABG pCO2 35.4 mmHg (32.0-48.0) 06/25/21 03:18 ABG pCO2 39.9 mm Hg 06/24/21 16:04 POC ABG pO2 177.1 mmHg (83-108) H 06/25/21 03:18 ABG pO2 204.2 mm Hg (80.0-90.0) H 06/24/21 16:04 POC ABG HCO3 18.2 06/25/21 03:18 ABG O2 Saturation 99.2 (0-100) 06/25/21 03:18 Abnormal lab findings: Abnormal Labs 06/24/21 06/24/21 06/24/21 13:38 13:38 13:57 WBC 18.6 H RBC 5.58 H MCV 77 L MCH 25 L Lymph % (Auto) 12.2 L [place] % (Auto) [place] # (Auto) Seg Neutrophils % 84.8 H Seg Neutrophils # 15.7 H ABG pH POC ABG pO2 ABG pO2 ABG O2 Saturation ABG Base Excess ABG Oxyhemoglobin ABG Glucose Carboxyhemoglobin Potassium 2.6 L* Carbon Dioxide 20 L Creatinine 0.5 L Glucose 228 H POC Glucose Total Protein 8.3 H Arterial Blood Glucose Urine WBC (Auto) U Epithel Cells (Auto) Salicylates < 0.3 L Acetaminophen 06/24/21 06/24/21 06/24/21 13:57 15:37 16:04 WBC RBC MCV MCH Lymph % (Auto) [place] % (Auto) [place] # (Auto) Seg Neutrophils % Seg Neutrophils # ABG pH 7.324 L POC ABG pO2 ABG pO2 204.2 H ABG O2 Saturation 99.2 H ABG Base Excess -5.3 L ABG Oxyhemoglobin ABG Glucose Carboxyhemoglobin Potassium Carbon Dioxide Creatinine Glucose POC Glucose Total Protein Arterial Blood Glucose Urine WBC (Auto) 42.0 H U Epithel Cells (Auto) 31.0 H Salicylates Acetaminophen 5.0 L 06/24/21 06/25/21 06/25/21 23:15 00:03 03:18 WBC RBC MCV MCH Lymph % (Auto) [place] % (Auto) [place] # (Auto) Seg Neutrophils % Seg Neutrophils # ABG pH POC ABG pO2 177.1 H ABG pO2 ABG O2 Saturation ABG Base Excess ABG Oxyhemoglobin 99.0 H ABG Glucose 213 H Carboxyhemoglobin 0.1 L Potassium Carbon Dioxide 19 L Creatinine Glucose 108 H POC Glucose 107 H Total Protein Arterial Blood Glucose 213 H Urine WBC (Auto) U Epithel Cells (Auto) Salicylates Acetaminophen 06/25/21 06/25/21 05:48 05:48 WBC 11.6 H RBC 5.30 H MCV MCH 25 L Lymph % (Auto) 10.6 L [place] % (Auto) 9.9 H [place] # (Auto) 1.1 H Seg Neutrophils % 79.3 H Seg Neutrophils # 9.2 H ABG pH POC ABG pO2 ABG pO2 ABG O2 Saturation ABG Base Excess ABG Oxyhemoglobin ABG Glucose Carboxyhemoglobin Potassium Carbon Dioxide 20 L Creatinine Glucose 106 H POC Glucose Total Protein Arterial Blood Glucose Urine WBC (Auto) U Epithel Cells (Auto) Salicylates Acetaminophen
--- NOTE | 2021-06-25 13:11 | Progress Note ---
Assessment and Plan Assessment and plan: This is a [id number] female with no known past medical history who presented in the ED after she ingested an ant killer agent called [employer] fire ant killer as s suicide attempt. Patient was intubated in the ED for airway protection due to increase lethargy and excessive secretions. Patient received 2mg of IV Atropine and charcoal activated in the ED. Patient was admitted into the ICU for further management. Hospital Course to Date: 06/25/21- Patient is intubated and sedated on propofol gtt RASS-2, following commands. s/p charcal activate and Atropine in the ED. Not much secretions this am, OGT to LIS with minimal output. Plan for SAT and SBT trial. CCM on consult. Will continue to monitor renal function, LFTs, and electrolytes. Assessment and Plan #Neuro:Sedated - Patient intubated and sedated on propofol gtt, RASS-2 - Titrate sedation for RASS goal 0 to -2 - Daily SAT and SBT per CCM - Avoid benzodiazepine's, reduce the possibility of delirium - Prn analgesia for CPOT greater than 3 - Maintenance of sleep-wake cycle #Tachycardia #Organophosphorus anticholinesterase overdose - Most likely compensatory - Received atropine and charcoal activated - ST on the monitor - Normotensive - Maintain adequate perfusion - Continue rehydration with cont. IVF - Continue blood pressure monitor per protocol - Maintain MAP above 65 - Continue AC- Lovenox SubQ and SCDs for VTE proph #Acute Respiratory Failure #Organophosphorus anticholinesterase overdose #Left Lower Lobe Pneumonia - 06/25 CXR with suspect left basilar pneumonia - ETT on 06/24 for airway protection - Vent settings: PRVC- 40%,6,16,450 - COVID swab pending - AM ABG noted - CCM consulted, appreciate recommendations - VAP bundle addressed - Aspiration precaution HOB above 30 - Daily SBT and SAT trials as tolerated - Daily ABG and CXR - Continue SPO2 monitoring for SPO2 goal above 92% #Organophosphorus anticholinesterase overdose - s/p Atropine and Charcoal activated - Poison control following - Minimal secretions today - Continue PRN Atropine - Continue OGT to LIS - Keep NPO for now - Continue rehydration with cont. IVF - continue PPI- Protonix - Continue BR- Senokot #Hypokalemia- improved - K as low as 2.6, 3.9 this am - Monitor and replace electrolytes as needed - Strict I&Os #Left lower lobe pneumonia #UTI (urinary tract infection) #Leukocytosis - 06/25 CXR with suspect left basilar pneumonia - 06/24 sputum cult pending, UA- +WBcs, urine culture pending - WBCS as high as 18, downtrending-->11.6 this am - COVID swab pending - Continue rehydration with cont. IVF - Continue Empiric ABx - Continue to F/U on B.cult - Daily CBC monitor - Consider ID consult if febrile or/and if leukocytosis reoccur #Endo:Hyperglycemia - A1c pending - SSI Q6hrs - While critically ill target blood glucose of 140-180 - Avoid hypoglycemia The high probability of a clinically significant, sudden or life threatening deterioration of the [multiple] system(s) required my full and direct attention, intervention and personal management. The aggregate critical care time was [60] minutes. This time is in addition to time spent performing reported procedures but includes the following: [x] Data Review and interpretation [x] Patient assessment and monitoring of vital signs [x] Documentation [x] Medication orders and management Disposition Plan: ICU Total Time Spent with Patient (Minutes): 60 History Interval history: Patient seen and examined at the bedside. Intubated and sedated on propofol gtt, RASS -2. ALIS overnight Hospitalist Physical - Constitutional Vitals: Temp Pulse Resp BP Pulse Ox 98.8 F 113 H 16 146/96 100 06/25/21 12:29 06/25/21 12:14 06/25/21 12:00 06/25/21 12:14 06/25/21 12:14 General appearance: Present: no acute distress, well-nourished, other (Intubated and sedated) - EENT Eyes: Present: PERRL ENT: clear oral mucosa - Respiratory Respiratory effort: normal Respiratory: bilateral: diminished - Cardiovascular Rhythm: regular Heart Sounds: Present: S1 & S2 - Extremities Extremities: no ischemia, pulses intact, pulses symmetrical Peripheral Pulses: within normal limits - Abdominal General gastrointestinal: soft, non-tender, normal bowel sounds - Integumentary Integumentary: Present: clear, warm, dry - Psychiatric Psychiatric: other (Intubated and sedated) - Neurologic Neurologic: other (Intubated and sedated) Results - Labs CBC & Chem 7: 06/25/21 05:48 06/25/21 05:48 Labs: Laboratory Last Values WBC 11.6 K/mm3 (4.5-11.0) H 06/25/21 05:48 RBC 5.30 M/mm3 (3.65-5.03) H 06/25/21 05:48 Hgb 13.3 gm/dl (10.1-14.3) 06/25/21 05:48 Hct 41.6 % (30.3-42.9) 06/25/21 05:48 MCV 79 fl (79-97) 06/25/21 05:48 MCH 25 pg (28-32) L 06/25/21 05:48 MCHC 32 % (30-34) 06/25/21 05:48 RDW 14.1 % (13.2-15.2) 06/25/21 05:48 Plt Count 397 K/mm3 (140-440) 06/25/21 05:48 Lymph % (Auto) 10.6 % (13.4-35.0) L 06/25/21 05:48 [place] % (Auto) 9.9 % (0.0-7.3) H 06/25/21 05:48 Eos % (Auto) 0.1 % (0.0-4.3) 06/25/21 05:48 Baso % (Auto) 0.1 % (0.0-1.8) 06/25/21 05:48 Lymph # (Auto) 1.2 K/mm3 (1.2-5.4) 06/25/21 05:48 [place] # (Auto) 1.1 K/mm3 (0.0-0.8) H 06/25/21 05:48 Eos # (Auto) 0.0 K/mm3 (0.0-0.4) 06/25/21 05:48 Baso # (Auto) 0.0 K/mm3 (0.0-0.1) 06/25/21 05:48 Seg Neutrophils % 79.3 % (40.0-70.0) H 06/25/21 05:48 Seg Neutrophils # 9.2 K/mm3 (1.8-7.7) H 06/25/21 05:48 ABG pH 7.328 (7.320-7.450) 06/25/21 03:18 POC ABG pCO2 35.4 mmHg (32.0-48.0) 06/25/21 03:18 ABG pCO2 39.9 mm Hg 06/24/21 16:04 POC ABG pO2 177.1 mmHg (83-108) H 06/25/21 03:18 ABG pO2 204.2 mm Hg (80.0-90.0) H 06/24/21 16:04 POC ABG HCO3 18.2 06/25/21 03:18 ABG HCO3 20.3 mmol/L (20.0-26.0) 06/24/21 16:04 ABG O2 Saturation 99.2 (0-100) 06/25/21 03:18 ABG O2 Content 18.5 (0.0-44) 06/24/21 16:04 POC ABG Base Excess -6.9 06/25/21 03:18 ABG Base Excess -5.3 mmol/L (-2.0-3.0) L 06/24/21 16:04 ABG Hemoglobin 14.5 (12.0-17.5) 06/25/21 03:18 ABG Oxyhemoglobin 99.0 (94-98) H 06/25/21 03:18 ABG Carboxyhemoglobin 1.2 % (0.0-5.0) 06/24/21 16:04 ABG Methemoglobin 0.1 (0.0-1.5) 06/25/21 03:18 ABG Sodium 136.2 mmol/L (136.0-145.0) 06/25/21 03:18 ABG Potassium 3.4 mmol/L (3.40-4.50) 06/25/21 03:18 ABG Chloride 107.0 mmol/L (98-107) 06/25/21 03:18 ABG Glucose 213 mg/dL (65-95) H 06/25/21 03:18 Oxyhemoglobin 97.5 % (95.0-99.0) 06/24/21 16:04 Carboxyhemoglobin 0.1 (0.5-1.5) L 06/25/21 03:18 FiO2 21 % 06/24/21 16:04 FiO2 % 40.0 06/25/21 03:18 Sodium 140 mmol/L (137-145) 06/25/21 05:48 Potassium 3.9 mmol/L (3.6-5.0) 06/25/21 05:48 Chloride 104.6 mmol/L (98-107) 06/25/21 05:48 Carbon Dioxide 20 mmol/L (22-30) L 06/25/21 05:48 Anion Gap 19 mmol/L 06/25/21 05:48 BUN 9 mg/dL (7-17) 06/25/21 05:48 Creatinine 0.7 mg/dL (0.6-1.2) 06/25/21 05:48 Estimated GFR > 60 ml/min 06/25/21 05:48 BUN/Creatinine Ratio 13 % 06/25/21 05:48 Glucose 106 mg/dL (65-100) H 06/25/21 05:48 POC Glucose 107 mg/dL (70-105) H 06/24/21 23:15 Calcium 9.6 mg/dL (8.4-10.2) 06/25/21 05:48 Total Bilirubin 0.40 mg/dL (0.1-1.2) 06/25/21 05:48 AST 26 units/L (5-40) 06/25/21 05:48 ALT 18 units/L (7-56) 06/25/21 05:48 Alkaline Phosphatase 86 units/L (35-129) 06/25/21 05:48 Total Protein 8.2 g/dL (6.3-8.2) 06/25/21 05:48 Albumin 4.2 g/dL (3.9-5) 06/25/21 05:48 Albumin/Globulin Ratio 1.1 % 06/25/21 05:48 Lipase 19 units/L (13-60) 06/24/21 13:38 Arterial Blood Glucose 213 mg/dL (65-95) H 06/25/21 03:18 Urine Color Yellow (Yellow) 06/24/21 15:37 Urine Turbidity Cloudy (Clear) 06/24/21 15:37 Urine pH 5.0 (5.0-7.0) 06/24/21 15:37 Ur Specific [place] 1.020 (1.003-1.030) 06/24/21 15:37 Urine Protein <15 mg/dl mg/dL (Negative) 06/24/21 15:37 Urine Glucose (UA) >=500 mg/dL (Negative) 06/24/21 15:37 Urine Ketones 80 mg/dL (Negative) 06/24/21 15:37 Urine Blood Sm (Negative) 06/24/21 15:37 Urine Nitrite Neg (Negative) 06/24/21 15:37 Urine Bilirubin Neg (Negative) 06/24/21 15:37 Urine Urobilinogen < 2.0 mg/dL (<2.0) 06/24/21 15:37 Ur Leukocyte Esterase Lg (Negative) 06/24/21 15:37 Urine WBC (Auto) 42.0 /HPF (0.0-6.0) H 06/24/21 15:37 Urine RBC (Auto) 102.0 /HPF (0.0-6.0) 06/24/21 15:37 U Epithel Cells (Auto) 31.0 /HPF (0-13.0) H 06/24/21 15:37 Urine Bacteria (Auto) 1+ /HPF (Negative) 06/24/21 15:37 Urine WBC Clumps Few /HPF 06/24/21 15:37 Urine Mucus 1+ /HPF 06/24/21 15:37 Urine Yeast (Budding) 2+ /HPF 06/24/21 15:37 Urine HCG, Qual Negative (Negative) 06/24/21 15:37 Salicylates < 0.3 mg/dL (2.8-20.0) L 06/24/21 13:57 Urine Opiates Screen Negative 06/24/21 15:37 Urine Methadone Screen Negative 06/24/21 15:37 Acetaminophen 5.0 ug/mL (10.0-30.0) L 06/24/21 13:57 Ur Barbiturates Screen Negative 06/24/21 15:37 Ur Phencyclidine Scrn Negative 06/24/21 15:37 Ur Amphetamines Screen Negative 06/24/21 15:37 U Benzodiazepines Scrn Negative 06/24/21 15:37 Urine Cocaine Screen Negative 06/24/21 15:37 U Marijuana (THC) Screen Negative 06/24/21 15:37 Drugs of Abuse Note Disclamer 06/24/21 15:37 Plasma/Serum Alcohol < 0.01 % (0-0.07) 06/24/21 13:39 Briones/IV: Voiding Method Indwelling Catheter Active Medications - Current Medications Current Medications: Generic Name Dose Route Start Last Admin Trade Name Freq PRN Reason Stop Dose Admin Acetaminophen 650 mg 06/24/21 17:39 Acetaminophen [address] Q4H PRN Pain MILD(1-3)/Fever >100.5/MOE Atropine Sulfate 1 mg 06/24/21 17:42 Atropine 1 Mg/Ml Vial IV Q6H PRN Bradycardia Enoxaparin Sodium 40 mg 06/24/21 18:00 06/25/21 09:12 Enoxaparin 40 Mg/0.4 Ml Inj SUB-Q 40 mg QDAY KAREY Administration Famotidine 20 mg 06/24/21 15:00 06/25/21 09:12 Famotidine 20 Mg/2 Ml Inj IV 20 mg BID KAREY Administration Hydromorphone HCl 0.5 mg 06/24/21 17:39 Hydromorphone 1 Mg/1 Ml Inj IV Q3H PRN Pain , Severe (7-10) Hydrophilic Ointment 1 applic 06/24/21 14:14 Lip Therapy Vaseline TP Q2HR PRN Dry Lips Lorazepam 100 mg/ Sodium 100 mls @ 1 mls/hr 06/24/21 15:00 06/24/21 14:55 Chloride/ Miscellaneous IV 1 mg/hr Information TITR KAREY 1 mls/hr Administration Protocol 1 MG/HR Propofol 1,000 mg in 100 mls @ 3.402 mls/hr 06/24/21 15:00 06/25/21 10:11 Diprivan 10 Mg/Ml IV 50 mcg/kg/min TITR KAREY 34.019 mls/hr Administration Protocol 5 MCG/KG/MIN Dextrose/Sodium Chloride 1,000 mls @ 125 mls/hr 06/24/21 18:00 06/25/21 09:08 D5ns IV 125 mls/hr DIRECT KAREY Administration Lorazepam 2 mg 06/24/21 14:14 06/24/21 14:50 Lorazepam 2 Mg/Ml Vial IV 2 mg Q10MIN PRN Administration Agitation Morphine Sulfate 2 mg 06/24/21 17:39 Morphine 2 Mg/1 Ml Inj IV Q4H PRN Pain, Moderate (4-6) Multi-Ingred Cream/Lotion/Oil/Oint 1 applic 06/24/21 14:14 Mineral Oil/Petrolatum, White Ophth Oint 3.5 Gm OU Q4HR PRN Dry Eye(s) Ondansetron HCl 4 mg 06/24/21 17:39 Ondansetron 4 Mg/2 Ml Inj IV Q8H PRN Nausea And Vomiting Senna/Docusate Sodium 1 tab 06/24/21 22:00 06/25/21 09:13 Sennosides/Docusate Sodium 8.6/50 Mg Tab FEEDTUBE Not Given BID KAREY Sodium Chloride 10 ml 06/24/21 22:00 06/25/21 09:13 Sodium Chloride 0.9% 10 Ml Flush Syringe IV 10 ml BID KAREY Administration Sodium Chloride 10 ml 06/24/21 17:39 Sodium Chloride 0.9% 10 Ml Flush Syringe IV PRN PRN LINE FLUSH Nutrition/Malnutrition Assess - Dietary Evaluation Nutrition/Malnutrition Findings: Nutrition Notes Start: 06/25/21 10:38 Freq: Status: Active Protocol: Document 06/25/21 10:38 IGNACIO (Rec: 06/25/21 10:49 IGNACIO [id number]) Nutrition Notes Need for Assessment generated from: MD Order Initial or Follow up Assessment Current Diagnosis Sepsis,Respiratory Failure Other Pertinent Diagnosis Attempted suicide, LLL pneu, UTI Current Diet No diet ordered Labs/Tests Reviewed Pertinent Medications D5NS at 125ml/hr, Ativan gtt, Senokot, Propofol at 34.019ml/ hr (provides 898 kcal) Height 5 ft 2 in Weight 113.398 kg [place] Body Weight (kg) 50.00 BMI 45.7 Weight Status Morbidly Obese Subjective/Other Information RD consulted to evaluate nutritional intake. Pt intubated to protect airway. She attempted suicide via drinking ant killer. Burn Absent Trauma Absent Minimum of two criteria No #1 Nutrition Diagnosis Swallowing difficulty Etiology [facility] [place] [facility] ventilation As Evidenced by Signs and Symptoms pt NPO Is patient on ventilator? Yes Is Patient Ambulatory and/or Out of Bed No REE-([facility] [facility]-confined to bed) 2182.008 Kcal/Kg value to use for calculation 13 Approximate Energy Requirements Using 1474 kcal/Kg Calculation Used for Recommendations Kcal/kg Additional Notes Pro needs up to 2.5g/kg IBW: up to 125g/day Fluid needs 1ml/kcal Nutrition Intervention Change Diet Order: Advance diet when medically feasible Nutrition Support: Recommend Osmolite 1.5 if unable to advance diet Goal #1 Either advance diet or start EN support within next 72 hrs to meet nutrient needs Anticipated Discharge Needs: None identified at this time Follow-Up By: 06/28/21 Additional Comments F/U: Diet advancement vs TF consult, vent status
[2021-06-25] MEDS ORDERED: SIMPLE SYRUP 15 ML FEEDTUBE PRN ×2 (13:50)
[2021-06-25] MEDS ORDERED: LIPASE 10,500/PROTEASE 25,000/AMYLASE 43,750 (UNITS) DR CAP FEEDTUBE PRN (13:50)
[2021-06-25] MEDS ORDERED: SODIUM BICARBONATE 325 MG TAB FEEDTUBE PRN (13:50)
[2021-06-25] MEDS: LORazepam 2 MG/ML VIAL IV PRN ×2 (14:10→21:26)
[2021-06-25] MEDS ORDERED: DEXTROSE 50% IN WATER (25GM) 50 ML SYRINGE IV PRN (14:55)
[2021-06-25 15:38] LABS: ABG Base Excess -3.3 mmol/L (-2.0-3.0); ABG HCO3 20.5 mmol/L (20.0-26.0); ABG PCO2 33.2 mm Hg; ABG PH 7.407 pH Units (7.350-7.450)
[2021-06-25 15:41] LABS: ABG Methemoglobin 0.5 % (0.0-1.5); ABG Oxygen Saturation 99.3 % (95.0-99.0)
[2021-06-25] MEDS: cefTRIAXone/NS 2 GM/100 ML 2 GM/100 ML BAG IV SCH (15:41)
[2021-06-25] MEDS: AZITHROMYCIN/NS 500 MG/250 ML 500 MG/250 ML BAG IV SCH (16:06)
--- NOTE | 2021-06-25 16:47 | XRay Report ---
ABDOMEN 1 VIEW INDICATION / CLINICAL INFORMATION: Feeding tube placement. COMPARISON: None available. FINDINGS: Enteric catheter tip and side-port project within the distal stomach. Signer Name: Eitan Goins MD Signed: 06/25/2021 4:43 PM Workstation Name: [id number]
--- NOTE | 2021-06-25 16:58 | Consultation ---
DATE OF CONSULTATION: 06/25/2021 PULMONARY CRITICAL CARE CONSULT CONSULTING PHYSICIAN: Dr. Hernandez. REASON FOR CONSULTATION: Organophosphate poisoning presumed. CHIEF COMPLAINT AND HISTORY OF PRESENT ILLNESS: As follows: The patient is a 30-year-old obese female, past medical history unknown really, but in the context of problems with her relationship, she reportedly drank an ant killer called Ortho Orthene fire killer with activity ingredient of acephate, which happens to be an organophosphate of moderate persistence in the system. She says she pod some of the granules in [employer] and took it for suicide at time. When she came into the Emergency Room, she was awake, but she had slower speech. She became more and more lethargic. She was unable to give any further history. The Emergency Room physician discussed with poison control and based on his own clinical examination, he decided that because of the rapid rate which she was deteriorating, she was intubated just to protect her airway in particular. We are asked to assist with management. She received 2 mg of atropine prior to intubation. When I stopped by to see her, she was resting in bed. We had just held the propofol drip she was on and she was following questions appropriately. Staff denied any significant signs and symptoms of cholinergic storm so to say. There were no sialorrhea and no excessive secretions. She has not had significant bradyarrhythmias. She has not had any seizure disorder. She was following commands appropriately. She has not had any nausea or vomiting. She has not had any diarrhea. With regard to the patient's tobacco use/abuse history, that history is unknown. The above is as much of the history of presentation as I have. PAST MEDICAL HISTORY: Obesity. PAST SURGICAL HISTORY: Unknown. MEDICATIONS: She was on at the time I stopped by to see according to the medication administration record included the following: Tylenol 650 mg per rectum q. 4 hours p.r.n. mild pain or fever, atropine 1 mg IV q. 6 hours p.r.n. bradycardia, Lovenox 40 mg subQ daily, Pepcid 20 mg IV b.i.d., Dilaudid 0.5 mg IV q. 3 hours p.r.n. severe pain, Ativan 2 mg IV q. 10 minutes p.r.n. agitation, lorazepam drip had earlier been started at 1 mg per hour, morphine sulfate 2 mg IV q. 4 hours p.r.n. moderate pain, Zofran 4 mg IV q. 8 hours p.r.n. nausea and vomiting. Propofol drip was now on hold. Senna docusate 1 tablet p.o. b.i.d. ALLERGIES: No known drug allergies. DIET: Obese lady, acute weight loss or gain history is unknown. FAMILY AND SOCIAL HISTORY: Apparently lives in the community, was having some problems in her relationship. Alcohol, tobacco or illicit drug use or abuse history are unknown. FAMILY HISTORY: Otherwise unknown. REVIEW OF SYSTEMS: Unobtainable secondary to the patient's medical and mental condition. Since she has been here, no gross hematochezia or melena, no gross hematuria, no hematemesis, no witnessed seizures. Review of systems otherwise unobtainable or as in body of history above. PHYSICAL EXAMINATION: VITAL SIGNS: At presentation, she was afebrile, temperature 97.5 degrees Fahrenheit, pulse of 109, respiratory rate of 18, blood pressure 136/88, O2 sats were 97%, inspired oxygen concentration at that time was not recorded. When I saw her O2 sats were 98% that was on the [facility], AC mode of ventilation, tidal volume 500, rate of 16 and a PEEP of 6 and 40% FiO2. GENERAL: She is a young, obese female. Normocephalic, atraumatic. Resting in bed without significant patient-ventilator dyssynchrony. HEAD, EYES, EARS, NOSE, AND THROAT: Anicteric. No conjunctival erythema. Oropharynx was moist. Endotracheal tube was taped at the lips around 23 cm. No gross jugular venous distention, no thyromegaly. Grossly, there were no palpable lymph nodes in the supraclavicular or submandibular lymph node chains. LUNGS: Auscultation of both lung carpenter were actually unremarkable. Lungs were clear bilaterally with good bilateral air movement. No wheezing. HEART: Sounds 1 and 2 are heard at the time of my evaluation, regular rate and rhythm without overt rubs or murmurs. She actually was tachycardic with a pulse of about 122. ABDOMEN: Soft, full, protuberant. Bowel sounds are positive, nontender, no palpable hepatosplenomegaly. EXTREMITIES: Without overt digital clubbing or cyanosis, no pedal edema. Pedal pulses are 2+ bilaterally. NEUROLOGIC: Pupils are equal, round, about 3 mm, reactive to light. Extraocular muscle movements were intact. She moves all 4 extremities spontaneously. SKIN: Her skin was of normal turgor and the areas examined without overt cellulitis or rash. Please see the wound care nurses' notes for full description of her skin. PSYCHIATRIC: Mood and affect were anxious, but she followed commands appropriately. Her judgment and insight is definitely suspect. LABORATORY DATA: From my review are as follows: Admission white count 18,600, hemoglobin 13.9, hematocrit 42.9, platelet count 383. Venous blood gas most recently shows a pH of 7.33, pCO2 of 35, pO2 of 177 on 40% FiO2 on the above-mentioned settings. Serum sodium at presentation was 138, potassium 2.6, chloride 101, bicarbonate 20, BUN 10, creatinine 0.5, glucose was 228. Liver function tests are within normal limits. Urinalysis showed large leukocyte esterase, 42 white cells per high-power field. Urine drug screen presumptive negative. Tylenol, aspirin and alcohol levels were nondetectable. No blood cultures. A chest x-ray has been reviewed, essentially clear lung carpenter, endotracheal tube tip is at the level of the clavicular heads, no gross pneumothorax, no gross bony fracture. ASSESSMENT: 1. Possible drug overdose. 2. Organophosphate poisoning. 3. Acute hypoxemic respiratory failure, on mechanical ventilatory support. 4. Major depressive disorder. 5. Leukocytosis. 6. Mild metabolic acidosis. 7. Hypokalemia at presentation. 8. Oropharyngeal dysphagia. 9. Possible urinary tract infection. PLAN: I will put her on spontaneous breathing trial, and she does not have significantly increased secretions at this point. She, however, was swallowed moderate persistent organophosphate and as she has release of the agent into her bloodstream, possibly from adipose tissue, she could well have worsening symptoms, but more likely perhaps just prolongation of her symptoms. I think it is prudent to observe her the whole day on a pressure support trial, keep her intubated and ensure that first she meets weaning criteria and passes a spontaneous breathing trial, but also ensure that her symptoms do not increase and ensure that she is not overtly excited from a PENCILLER standpoint and is easy to control. The presumptive plan will be to rest overnight on full support, do a quick 2-hour SVT in the morning and extubate. If she remains stable, we will continue to monitor for all the possible toxicities associated with her ingestion including cardiac monitoring, respiratory monitoring and monitoring of her clinically. Enteral nutrition will be the feeding modality of choice. A psychiatric consult has been placed. Potassium has been corrected. I will await urine culture before considering all for signs and symptoms of a significant infection before beginning empiric antibiotic therapy. She is appropriately on GI and DVT prophylaxis. Flu and pneumonia vaccination will be addressed per protocol. Thank you very much for the consult, Dr. Hernandez. We will follow along and make further recommendations as picture progresses/becomes clearer. She is critically ill on life-sustaining interventions including mechanical ventilatory support at very high risk of from neurologic system decompensation and cardiopulmonary system decompensation. At this time, I spent about 35-40 minutes of critical care time without overlap and excluding any procedural time that may be necessary. TID: [id number] RECEIPT: [id number] KAIA/BO/ARMANDO
[2021-06-25] MEDS: INSULIN LISPRO 100 UNIT/ML SUB-Q SCH (18:15)
[2021-06-26] MEDS: INSULIN LISPRO 100 UNIT/ML SUB-Q SCH (00:24)
[2021-06-26] MEDS: LORazepam 2 MG/ML VIAL IV PRN ×2 (01:30→06:41)
[2021-06-26] MEDS: D5W/0.9% NACL 1,000 ML IV SCH ×3 (02:37→21:20)
[2021-06-26 08:00] LABS: Mean Corpuscular HGB Conc 30 % (30-34); Mean Corpuscular Volume 85 fl (79-97); Platelet Count 213 K/mm3 (140-440); Red Blood Count 4.95 M/mm3 (3.65-5.03); Red Cell Distribution Width 14.9 % (13.2-15.2)
[2021-06-26 08:01] LABS: Hematocrit 41.8 % (30.3-42.9); Hemoglobin 12.4 gm/dl (10.1-14.3)
[2021-06-26] MEDS: HYDROmorphone 1 MG/1 ML INJ IV PRN ×2 (08:16→12:08)
[2021-06-26 08:24] LABS: Blood Urea Nitrogen 6 mg/dL (7-17); Calcium 8.1 mg/dL (8.4-10.2); Hemolysis Index 87
[2021-06-26 08:26] LABS: BUN/Creatinine Ratio 20
--- NOTE | 2021-06-26 09:11 | XRay Report ---
XR chest 1V ap INDICATION / CLINICAL INFORMATION: follow up respiratory failure. COMPARISON: Radiograph from yesterday. FINDINGS: SUPPORT DEVICES: Unchanged. HEART /PULMONARY VASCULATURE: Unchanged. LUNGS / PLEURA: Stable left basilar airspace opacity remains, may reflect atelectasis or infiltrate. No pneumothorax. IMPRESSION: 1. No significant interval change. Signer Name: Eitan Goins MD Signed: 06/26/2021 9:06 AM Workstation Name: [id number]
[2021-06-26] MEDS: ENOXAPARIN 40 MG/0.4 ML INJ SUB-Q SCH (09:44)
[2021-06-26] MEDS: SENNOSIDES/DOCUSATE SODIUM 8.6/50 MG TAB FEEDTUBE SCH ×2 (09:44→21:35)
[2021-06-26] MEDS: FAMOTIDINE 20 MG/2 ML INJ IV SCH ×2 (09:44→21:35)
[2021-06-26] MEDS: hydrALAZINE 20 MG/1 ML INJ IV PRN ×3 (09:53→21:34)
--- NOTE | 2021-06-26 12:19 | Progress Note ---
Assessment and Plan Assessment and plan: This is a 52-mcu[age]-ace female with no known past medical history who presented in the ED after she ingested an ant killer agent called Ortho Orthene fire ant killer as s suicide attempt. Patient was intubated in the ED for airway protection due to increase lethargy and excessive secretions. Patient received 2mg of IV Atropine and charcoal activated in the ED. Patient was admitted into the ICU for further management. Hospital Course to Date: 06/25/21- Patient is intubated and sedated on propofol gtt RASS-2, following commands. s/p charcal activate and Atropine in the ED. Not much secretions this am, OGT to LIS with minimal output. Plan for SAT and SBT trial. CCM on consult. Will continue to monitor renal function, LFTs, and electrolytes. 06/26/21- Patient remains on the vent, no longer on sedation. Plan for SBT, TF held this am, OGT to LIS gastric bubble noted from this am XR. Plan for possible extubation today. Continue 1013 status. Assessment and Plan #Neuro: Suicide Attempt #Organophosphorus anticholinesterase overdose - Patient intubated, awake and alert, following commands - 1013 status - Psych is following - Avoid benzodiazepine to reduce the possibility of delirium - Prn analgesia for CPOT greater than 3 - Maintenance of sleep-wake cycle #Tachycardia #Organophosphorus anticholinesterase overdose - Most likely compensatory - Received atropine and charcoal activated - ST on the monitor - Normotensive - Maintain adequate perfusion - Continue rehydration with cont. IVF - Continue blood pressure monitor per protocol - Maintain MAP above 65 - Continue AC- Lovenox SubQ and SCDs for VTE proph #Acute Respiratory Failure #Organophosphorus anticholinesterase overdose #Left Lower Lobe Pneumonia - 06/25 CXR with suspect left basilar pneumonia - ETT on 06/24 for airway protection - Vent settings: PRVC- 30%,6,16,450 - COVID swab negative - AM ABG noted - CCM consulted, appreciate recommendations - VAP bundle addressed - Aspiration precaution HOB above 30 - Daily SBT and SAT trials as tolerated - Daily ABG and CXR - Continue SPO2 monitoring for SPO2 goal above 92% - Possible extubation today #Organophosphorus anticholinesterase overdose - s/p Atropine and Charcoal activated - Poison control following - Minimal secretions today - Continue PRN Atropine - TF initiated overnight - Gastric bubble noted from this am XR - TF held, OGT to LIS - Continue rehydration with cont. IVF - continue PPI- Protonix - Continue BR- Senokot #Hypokalemia- improved - K as low as 2.6, 3.9 this am - Monitor and replace electrolytes as needed - Strict I&Os #Left lower lobe pneumonia #UTI (urinary tract infection) #Leukocytosis - 06/25 CXR with suspect left basilar pneumonia - 06/24 sputum cult pending, UA- +WBcs, urine culture pending - WBCS as high as 18, downtrending-->11.6 this am - COVID swab pending - Continue rehydration with cont. IVF - Continue Empiric ABx - Continue to F/U on B.cult - Daily CBC monitor - Consider ID consult if febrile or/and if leukocytosis reoccur #Endo:Hyperglycemia - A1c pending - SSI Q6hrs - While critically ill target blood glucose of 140-180 - Avoid hypoglycemia The high probability of a clinically significant, sudden or life threatening deterioration of the [Respiratory, GI, endo] system(s) required my full and direct attention, intervention and personal management. The aggregate critical care time was [60] minutes. This time is in addition to time spent performing reported procedures but includes the following: [x] Data Review and interpretation [x] Patient assessment and monitoring of vital signs [x] Documentation [x] Medication orders and management Disposition Plan: ICU Total Time Spent with Patient (Minutes): 60 History Interval history: Patient seen and examined at the bedside. Patient remains on the vent, awake and alert, following commands. ALIS overnight Hospitalist Physical - Constitutional Vitals: Temp Pulse Resp BP Pulse Ox 98.7 F 152 H 19 160/103 100 06/26/21 08:00 06/26/21 11:00 06/26/21 11:00 06/26/21 11:00 06/26/21 11:00 General appearance: Present: no acute distress, well-nourished, other (Intubated) - EENT Eyes: Present: PERRL ENT: hearing intact - Neck Neck: Present: normal ROM - Respiratory Respiratory effort: normal Respiratory: bilateral: rhonchi - Cardiovascular Rhythm: regular Heart Sounds: Present: S1 & S2 - Extremities Extremities: no ischemia, pulses intact, pulses symmetrical Peripheral Pulses: within normal limits - Abdominal General gastrointestinal: soft, non-tender, normal bowel sounds - Integumentary Integumentary: Present: clear, warm, dry - Psychiatric Psychiatric: cooperative - Neurologic Neurologic: moves all extremities - Allied Health Allied health notes reviewed: nursing Results - Labs CBC & Chem 7: 06/26/21 07:52 06/26/21 06:59 Labs: Laboratory Last Values WBC 8.2 K/mm3 (4.5-11.0) 06/26/21 07:52 RBC 4.95 M/mm3 (3.65-5.03) 06/26/21 07:52 Hgb 12.4 gm/dl (10.1-14.3) 06/26/21 07:52 Hct 41.8 % (30.3-42.9) 06/26/21 07:52 MCV 85 fl (79-97) 06/26/21 07:52 MCH 25 pg (28-32) L 06/26/21 07:52 MCHC 30 % (30-34) 06/26/21 07:52 RDW 14.9 % (13.2-15.2) 06/26/21 07:52 Plt Count 213 K/mm3 (140-440) 06/26/21 07:52 Lymph % (Auto) 10.6 % (13.4-35.0) L 06/25/21 05:48 [place] % (Auto) 9.9 % (0.0-7.3) H 06/25/21 05:48 Eos % (Auto) 0.1 % (0.0-4.3) 06/25/21 05:48 Baso % (Auto) 0.1 % (0.0-1.8) 06/25/21 05:48 Lymph # (Auto) 1.2 K/mm3 (1.2-5.4) 06/25/21 05:48 [place] # (Auto) 1.1 K/mm3 (0.0-0.8) H 06/25/21 05:48 Eos # (Auto) 0.0 K/mm3 (0.0-0.4) 06/25/21 05:48 Baso # (Auto) 0.0 K/mm3 (0.0-0.1) 06/25/21 05:48 Seg Neutrophils % 79.3 % (40.0-70.0) H 06/25/21 05:48 Seg Neutrophils # 9.2 K/mm3 (1.8-7.7) H 06/25/21 05:48 ABG pH 7.407 pH Units (7.350-7.450) 06/25/21 15:27 POC ABG pCO2 35.4 mmHg (32.0-48.0) 06/25/21 03:18 ABG pCO2 33.2 mm Hg 06/25/21 15:27 POC ABG pO2 177.1 mmHg (83-108) H 06/25/21 03:18 ABG pO2 201.0 mm Hg (80.0-90.0) H 06/25/21 15:27 POC ABG HCO3 18.2 06/25/21 03:18 ABG HCO3 20.5 mmol/L (20.0-26.0) 06/25/21 15:27 ABG O2 Saturation 99.3 % (95.0-99.0) H 06/25/21 15:27 ABG O2 Content 21.4 (0.0-44) 06/25/21 15:27 POC ABG Base Excess -6.9 06/25/21 03:18 ABG Base Excess -3.3 mmol/L (-2.0-3.0) L 06/25/21 15:27 ABG Hemoglobin 13.6 gm/dl (12.0-16.0) 06/25/21 15:27 ABG Oxyhemoglobin 99.0 (94-98) H 06/25/21 03:18 ABG Carboxyhemoglobin 0.9 % (0.0-5.0) 06/25/21 15:27 ABG Methemoglobin 0.5 % (0.0-1.5) 06/25/21 15:27 ABG Sodium 136.2 mmol/L (136.0-145.0) 06/25/21 03:18 ABG Potassium 3.4 mmol/L (3.40-4.50) 06/25/21 03:18 ABG Chloride 107.0 mmol/L (98-107) 06/25/21 03:18 ABG Glucose 213 mg/dL (65-95) H 06/25/21 03:18 Oxyhemoglobin 97.9 % (95.0-99.0) 06/25/21 15:27 Carboxyhemoglobin 0.1 (0.5-1.5) L 06/25/21 03:18 FiO2 40 % 06/25/21 15:27 FiO2 % 40.0 06/25/21 03:18 Sodium 139 mmol/L (137-145) 06/26/21 06:59 Potassium 3.9 mmol/L (3.6-5.0) 06/26/21 06:59 Chloride 110.1 mmol/L (98-107) H 06/26/21 06:59 Carbon Dioxide 16 mmol/L (22-30) L 06/26/21 06:59 Anion Gap 17 mmol/L 06/26/21 06:59 BUN 6 mg/dL (7-17) L 06/26/21 06:59 Creatinine 0.3 mg/dL (0.6-1.2) L D 06/26/21 06:59 Estimated GFR > 60 ml/min 06/26/21 06:59 BUN/Creatinine Ratio 20 % 06/26/21 06:59 Glucose 137 mg/dL (65-100) H 06/26/21 06:59 POC Glucose 110 mg/dL (70-105) H 06/25/21 23:21 Hemoglobin A1c 5.8 % (4-6) 06/26/21 05:48 Calcium 8.1 mg/dL (8.4-10.2) L D 06/26/21 06:59 Total Bilirubin 0.40 mg/dL (0.1-1.2) 06/25/21 05:48 AST 26 units/L (5-40) 06/25/21 05:48 ALT 18 units/L (7-56) 06/25/21 05:48 Alkaline Phosphatase 86 units/L (35-129) 06/25/21 05:48 Total Protein 8.2 g/dL (6.3-8.2) 06/25/21 05:48 Albumin 4.2 g/dL (3.9-5) 06/25/21 05:48 Albumin/Globulin Ratio 1.1 % 06/25/21 05:48 Triglycerides 101 mg/dL (2-149) 06/26/21 06:59 Lipase 19 units/L (13-60) 06/24/21 13:38 Arterial Blood Glucose 213 mg/dL (65-95) H 06/25/21 03:18 Urine Color Yellow (Yellow) 06/24/21 15:37 Urine Turbidity Cloudy (Clear) 06/24/21 15:37 Urine pH 5.0 (5.0-7.0) 06/24/21 15:37 Ur Specific [place] 1.020 (1.003-1.030) 06/24/21 15:37 Urine Protein <15 mg/dl mg/dL (Negative) 06/24/21 15:37 Urine Glucose (UA) >=500 mg/dL (Negative) 06/24/21 15:37 Urine Ketones 80 mg/dL (Negative) 06/24/21 15:37 Urine Blood Sm (Negative) 06/24/21 15:37 Urine Nitrite Neg (Negative) 06/24/21 15:37 Urine Bilirubin Neg (Negative) 06/24/21 15:37 Urine Urobilinogen < 2.0 mg/dL (<2.0) 06/24/21 15:37 Ur Leukocyte Esterase Lg (Negative) 06/24/21 15:37 Urine WBC (Auto) 42.0 /HPF (0.0-6.0) H 06/24/21 15:37 Urine RBC (Auto) 102.0 /HPF (0.0-6.0) 06/24/21 15:37 U Epithel Cells (Auto) 31.0 /HPF (0-13.0) H 06/24/21 15:37 Urine Bacteria (Auto) 1+ /HPF (Negative) 06/24/21 15:37 Urine WBC Clumps Few /HPF 06/24/21 15:37 Urine Mucus 1+ /HPF 06/24/21 15:37 Urine Yeast (Budding) 2+ /HPF 06/24/21 15:37 Urine HCG, Qual Negative (Negative) 06/24/21 15:37 Salicylates < 0.3 mg/dL (2.8-20.0) L 06/24/21 13:57 Urine Opiates Screen Negative 06/24/21 15:37 Urine Methadone Screen Negative 06/24/21 15:37 Acetaminophen 5.0 ug/mL (10.0-30.0) L 06/24/21 13:57 Ur Barbiturates Screen Negative 06/24/21 15:37 Ur Phencyclidine Scrn Negative 06/24/21 15:37 Ur Amphetamines Screen Negative 06/24/21 15:37 U Benzodiazepines Scrn Negative 06/24/21 15:37 Urine Cocaine Screen Negative 06/24/21 15:37 U Marijuana (THC) Screen Negative 06/24/21 15:37 Drugs of Abuse Note Disclamer 06/24/21 15:37 Plasma/Serum Alcohol < 0.01 % (0-0.07) 06/24/21 13:39 Coronavirus (PCR) Negative (Negative) 06/25/21 09:25 Microbiology: Microbiology 06/24/21 15:15 Tracheal Aspirate Sputum Culture - Preliminary Briones/IV: Voiding Method Indwelling Catheter Active Medications - Current Medications Current Medications: Generic Name Dose Route Start Last Admin Trade Name Freq PRN Reason Stop Dose Admin Acetaminophen 650 mg 06/24/21 17:39 Acetaminophen 650 Mg Rect Supp MT Q4H PRN Pain MILD(1-3)/Fever >100.5/MOE Lipase/Protease/Amylase 1 each 06/25/21 13:50 Lipase 10,500/Protease 25,000/Amylase 43,750 (Units) Dr Cap FEEDTUBE PRN PRN For Clogged Feeding Tube Atropine Sulfate 1 mg 06/24/21 17:42 Atropine 1 Mg/Ml Vial IV Q6H PRN Bradycardia Dextrose 50 ml 06/25/21 14:55 Dextrose 50% In Water (25gm) 50 Ml Syringe IV Q30MIN PRN Hypoglycemia Protocol Enoxaparin Sodium 40 mg 06/24/21 18:00 06/26/21 09:44 Enoxaparin 40 Mg/0.4 Ml Inj SUB-Q 40 mg QDAY KAREY Administration Famotidine 20 mg 06/24/21 15:00 06/26/21 09:44 Famotidine 20 Mg/2 Ml Inj IV 20 mg BID KAREY Administration Hydralazine HCl 10 mg 06/25/21 15:19 06/26/21 09:53 Hydralazine 20 Mg/1 Ml Inj IV 10 mg Q4HR PRN Administration Hypertension Hydromorphone HCl 0.5 mg 06/24/21 17:39 06/26/21 12:08 Hydromorphone 1 Mg/1 Ml Inj IV 0.5 mg Q3H PRN Administration Pain , Severe (7-10) Hydrophilic Ointment 1 applic 06/24/21 14:14 Lip Therapy Vaseline TP Q2HR PRN Dry Lips Dextrose/Sodium Chloride 1,000 mls @ 125 mls/hr 06/24/21 18:00 06/26/21 09:45 D5ns IV 125 mls/hr DIRECT KAREY Administration Azithromycin 500 mg in 250 mls @ 250 mls/hr 06/25/21 16:00 06/25/21 16:06 Zithromax/Ns IV 06/28/21 15:59 250 mls/hr Q24H KAREY Administration Ceftriaxone Sodium 2 gm in 100 mls @ 200 mls/hr 06/25/21 16:00 06/25/21 15:41 Rocephin/Ns 2 Gm/100 Ml IV 06/28/21 15:59 200 mls/hr Q24H KAREY Administration Protocol Insulin Human Lispro 0 unit 06/25/21 18:00 06/26/21 00:24 Insulin Lispro 100 Unit/Ml SUB-Q Not Given Q6HR [facility] Protocol Lorazepam 1 mg 06/25/21 14:12 06/26/21 06:41 Lorazepam 2 Mg/Ml Vial IV 1 mg Q4H PRN Administration Agitation Morphine Sulfate 2 mg 06/24/21 17:39 06/25/21 23:47 Morphine 2 Mg/1 Ml Inj IV 2 mg Q4H PRN Administration Pain, Moderate (4-6) Multi-Ingred Cream/Lotion/Oil/Oint 1 applic 06/24/21 14:14 Mineral Oil/Petrolatum, White Ophth Oint 3.5 Gm OU Q4HR PRN Dry Eye(s) Ondansetron HCl 4 mg 06/24/21 17:39 Ondansetron 4 Mg/2 Ml Inj IV Q8H PRN Nausea And Vomiting Senna/Docusate Sodium 1 tab 06/24/21 22:00 06/26/21 09:44 Sennosides/Docusate Sodium 8.6/50 Mg Tab FEEDTUBE 1 tab BID KAREY Administration Simple Syrup 15 ml 06/25/21 13:50 Simple Syrup 15 Ml FEEDTUBE PRN PRN Hypoglycemia Simple Syrup 30 ml 06/25/21 13:50 Simple Syrup 15 Ml FEEDTUBE PRN PRN Hypoglycemia Sodium Bicarbonate 325 mg 06/25/21 13:50 Sodium Bicarbonate 325 Mg Tab FEEDTUBE PRN PRN For Clogged Feeding Tube Sodium Chloride 10 ml 06/24/21 22:00 06/26/21 09:44 Sodium Chloride 0.9% 10 Ml Flush Syringe IV 10 ml BID KAREY Administration Sodium Chloride 10 ml 06/24/21 17:39 Sodium Chloride 0.9% 10 Ml Flush Syringe IV PRN PRN LINE FLUSH Nutrition/Malnutrition Assess - Dietary Evaluation Nutrition/Malnutrition Findings: Nutrition Notes Start: 06/25/21 10:38 Freq: Status: Active Protocol: Document 06/25/21 10:38 IGNACIO (Rec: 06/25/21 10:49 [email or web address] [id number]) Nutrition Notes Need for Assessment generated from: MD Order Initial or Follow up Assessment Current Diagnosis Sepsis,Respiratory Failure Other Pertinent Diagnosis Attempted suicide, LLL pneu, UTI Current Diet No diet ordered Labs/Tests Reviewed Pertinent Medications D5NS at 125ml/hr, Ativan gtt, Senokot, Propofol at 34.019ml/ hr (provides 898 kcal) Height 5 ft 2 in Weight 113.398 kg [place] Body Weight (kg) 50.00 BMI 45.7 Weight Status Morbidly Obese Subjective/Other Information RD consulted to evaluate nutritional intake and for TF. Pt intubated to protect airway. She attempted suicide via drinking ant killer. Burn Absent Trauma Absent Minimum of two criteria No #1 Nutrition Diagnosis Swallowing difficulty Etiology mech ventilation As Evidenced by Signs and Symptoms pt NPO Is patient on ventilator? Yes Is Patient Ambulatory and/or Out of Bed No REE-([facility]-confined to bed) 2182.008 Kcal/Kg value to use for calculation 14 Approximate Energy Requirements Using 1588 kcal/Kg Calculation Used for Recommendations Kcal/kg Additional Notes Pro needs up to 2.5g/kg IBW: up to 125g/day Fluid needs 1ml/kcal Nutrition Intervention Nutrition Support: Promote at 65ml/hr with 50ml water flush q4h. Kcal 1,560 Protein (gm) 98 Carbohydrates (gm) 203 Fat (gm) 41 Fluid (mL) 1,309 Fiber (gm) 0 Goal #1 TF tolerance Goal #2 TF (at goal rate) to meet at least 65-70% energy and 75% pro needs Anticipated Discharge Needs: Unable to identify at this time Follow-Up By: 06/28/21 Additional Comments F/U: new TF, vent status
--- NOTE | 2021-06-26 14:26 | Progress Note ---
Assessment and Plan Possible drug overdose Organophosphate poisoning Acute hypoxemic respiratory failure Major depressive disorder Leukocytosis Mild metabolic acidosis Hypokalemia at presentation Oropharyngeal dysphagia Possible urinary tract infection - extubate if passes SBT - continue Daily SAT and SBT assessment as tolerated otherwise - continue to wean supplemental oxygen for target O2 sat's > 90% acutely - VAP bundle addressed - continue lung protective strategies - continue bronchodilators with pulmonary hygiene per RT - wean per pulmonary driven protocols otherwise - continue accuchecks with glycemic control per SSI (While critically ill target blood glucose of 140-180 mg/dL; avoid hypoglycemia) - sedation prn for target RASS 0 to -1 - avoid nephrotoxins, renally dose all medications - AB's per ID rec's - prn analgesia per CPOT score - Maintenance of sleep-wake cycle, avoid delirium - continue enteral nutritional support at goal rate as tolerated - G.I. & VTE prophylaxis - PT/OT/ROM exercises - continue mobility protocols for pressure ulcer prophylaxis - Monitor hemodynamics closely - continue other care per attending / other consultants - discharge planning ongoing concurrently COVID SPECIFIC INTERVENTIONS - COVID-19 test negative .... Re-evaluate in am & prn CONDITION: CRITICAL PROGNOSIS: GUARDED CODE STATUS: FULL CODE The high probability of a clinically significant, sudden or life-threatening deterioration of the [respiratory, cardiovascular & neurologic] system(s) required my full and direct attention, intervention and personal management. The aggregate critical care time was [34] minutes without overlap. Time includes spent on; [x] Data Review and interpretation [x] Patient assessment and monitoring of vital signs [x] Documentation [x] Medication orders and management Subjective Date of service: 06/26/21 Principal diagnosis: Drug OD; Organophosphate poisoning; Ac hypoxemic resp failure; MDD; UTI Interval history: Patient is seen today for: Possible drug OD; Organophosphate poisoning; Acute hypoxemic respiratory failure; MDD; Leukocytosis; UTI Seen and examined at bedside; 24hour events reviewed; nursing and respiratory care staff consulted; no adverse overnight events reported to me; resting peacefully in bed; on SBT and tolerating well; good ABG after 2 hours; denies acute chest pain or palpitations Objective Vital Signs - 12hr 06/26/21 06/26/21 06/26/21 02:30 03:00 03:30 Temperature Pulse Rate 92 H 96 H 97 H Respiratory 16 16 16 Rate Blood Pressure 143/80 147/86 151/91 O2 Sat by Pulse 100 100 100 Oximetry 06/26/21 06/26/21 06/26/21 04:00 04:11 04:30 Temperature 99 F Pulse Rate 90 110 H 119 H Respiratory 16 15 Rate Blood Pressure 138/89 138/89 149/89 O2 Sat by Pulse 100 100 98 Oximetry 06/26/21 06/26/21 06/26/21 05:00 05:30 06:00 Temperature Pulse Rate 105 H 100 H 93 H Respiratory 16 17 16 Rate Blood Pressure 148/93 151/95 155/98 O2 Sat by Pulse 100 100 100 Oximetry 06/26/21 06/26/21 06/26/21 06:30 07:00 07:30 Temperature Pulse Rate 112 H 99 H 128 H Respiratory 18 16 15 Rate Blood Pressure 162/100 158/96 173/108 O2 Sat by Pulse 100 100 100 Oximetry 06/26/21 06/26/21 06/26/21 08:00 08:31 09:01 Temperature 98.7 F Pulse Rate 151 H 98 H 91 H Respiratory 16 16 16 Rate Blood Pressure 162/112 151/97 151/97 O2 Sat by Pulse 100 100 100 Oximetry 06/26/21 06/26/21 06/26/21 09:31 09:35 10:00 Temperature Pulse Rate 110 H 98 H 127 H Respiratory 15 16 17 Rate Blood Pressure 151/97 151/97 156/87 O2 Sat by Pulse 100 100 100 Oximetry 06/26/21 06/26/21 06/26/21 10:30 11:00 11:30 Temperature Pulse Rate 136 H 152 H 138 H Respiratory 16 19 17 Rate Blood Pressure 151/89 160/103 149/90 O2 Sat by Pulse 100 100 100 Oximetry 06/26/21 06/26/21 06/26/21 12:00 12:30 13:00 Temperature 98.9 F Pulse Rate 136 H 127 H 111 H Respiratory 16 13 14 Rate Blood Pressure 174/100 149/102 152/88 O2 Sat by Pulse 100 100 Oximetry 06/26/21 13:15 Temperature Pulse Rate 152 H Respiratory 17 Rate Blood Pressure 160/103 O2 Sat by Pulse 100 Oximetry Eyes: non-icteric ENT: oropharynx moist, other (ETT 24 cm TOM) Neck: supple, no JVD, other (large circumference) Effort: normal Ascultation: Bilateral: diminished breath sounds, rhonchi Percussion: Bilateral: not dull Cardiovascular: regular rate and rhythm Gastrointestinal: normoactive bowel sounds, soft, non-tender, non-distended (protuberant) Integumentary: rash (stasis dermatitis) Extremities: no cyanosis, no edema, pink and warm, pulses normal Neurologic: non-focal exam (grossly), pupils equal and round, motor strength normal and Psychiatric: anxious CBC and BMP: 06/27/21 04:25 06/27/21 04:25 ABG, PT/INR, D-dimer: ABG ABG pH 7.430 (7.320-7.450) 06/26/21 12:50 POC ABG pCO2 36.9 mmHg (32.0-48.0) 06/26/21 12:50 ABG pCO2 33.2 mm Hg 06/25/21 15:27 POC ABG pO2 132.3 mmHg (83-108) H 06/26/21 12:50 ABG pO2 201.0 mm Hg (80.0-90.0) H 06/25/21 15:27 POC ABG HCO3 23.9 06/26/21 12:50 ABG O2 Saturation 98.8 (0-100) 06/26/21 12:50 Abnormal lab findings: Abnormal Labs 06/24/21 06/24/21 06/24/21 13:38 13:38 13:57 WBC 18.6 H RBC 5.58 H MCV 77 L MCH 25 L Lymph % (Auto) 12.2 L Letcher % (Auto) Letcher # (Auto) Seg Neutrophils % 84.8 H Seg Neutrophils # 15.7 H ABG pH POC ABG pO2 ABG pO2 ABG O2 Saturation ABG Base Excess ABG Oxyhemoglobin ABG Potassium ABG Chloride ABG Glucose Carboxyhemoglobin Potassium 2.6 L* Chloride Carbon Dioxide 20 L BUN Creatinine 0.5 L Glucose 228 H POC Glucose Calcium Total Protein 8.3 H Arterial Blood Glucose Urine WBC (Auto) U Epithel Cells (Auto) Salicylates < 0.3 L Acetaminophen 06/24/21 06/24/21 06/24/21 13:57 15:37 16:04 WBC RBC MCV MCH Lymph % (Auto) Letcher % (Auto) Letcher # (Auto) Seg Neutrophils % Seg Neutrophils # ABG pH 7.324 L POC ABG pO2 ABG pO2 204.2 H ABG O2 Saturation 99.2 H ABG Base Excess -5.3 L ABG Oxyhemoglobin ABG Potassium ABG Chloride ABG Glucose Carboxyhemoglobin Potassium Chloride Carbon Dioxide BUN Creatinine Glucose POC Glucose Calcium Total Protein Arterial Blood Glucose Urine WBC (Auto) 42.0 H U Epithel Cells (Auto) 31.0 H Salicylates Acetaminophen 5.0 L 06/24/21 06/25/21 06/25/21 23:15 00:03 03:18 WBC RBC MCV MCH Lymph % (Auto) Letcher % (Auto) Letcher # (Auto) Seg Neutrophils % Seg Neutrophils # ABG pH POC ABG pO2 177.1 H ABG pO2 ABG O2 Saturation ABG Base Excess ABG Oxyhemoglobin 99.0 H ABG Potassium ABG Chloride ABG Glucose 213 H Carboxyhemoglobin 0.1 L Potassium Chloride Carbon Dioxide 19 L BUN Creatinine Glucose 108 H POC Glucose 107 H Calcium Total Protein Arterial Blood Glucose 213 H Urine WBC (Auto) U Epithel Cells (Auto) Salicylates Acetaminophen 06/25/21 06/25/21 06/25/21 05:48 05:48 15:27 WBC 11.6 H RBC 5.30 H MCV MCH 25 L Lymph % (Auto) 10.6 L Letcher % (Auto) 9.9 H Letcher # (Auto) 1.1 H Seg Neutrophils % 79.3 H Seg Neutrophils # 9.2 H ABG pH POC ABG pO2 ABG pO2 201.0 H ABG O2 Saturation 99.3 H ABG Base Excess -3.3 L ABG Oxyhemoglobin ABG Potassium ABG Chloride ABG Glucose Carboxyhemoglobin Potassium Chloride Carbon Dioxide 20 L BUN Creatinine Glucose 106 H POC Glucose Calcium Total Protein Arterial Blood Glucose Urine WBC (Auto) U Epithel Cells (Auto) Salicylates Acetaminophen 06/25/21 06/25/21 06/26/21 18:10 23:21 06:59 WBC RBC MCV MCH Lymph % (Auto) Letcher % (Auto) Letcher # (Auto) Seg Neutrophils % Seg Neutrophils # ABG pH POC ABG pO2 ABG pO2 ABG O2 Saturation ABG Base Excess ABG Oxyhemoglobin ABG Potassium ABG Chloride ABG Glucose Carboxyhemoglobin Potassium Chloride 110.1 H Carbon Dioxide 16 L BUN 6 L Creatinine 0.3 L D Glucose 137 H POC Glucose 142 H 110 H Calcium 8.1 L D Total Protein Arterial Blood Glucose Urine WBC (Auto) U Epithel Cells (Auto) Salicylates Acetaminophen 06/26/21 06/26/21 06/26/21 07:52 12:50 13:43 WBC RBC MCV MCH 25 L Lymph % (Auto) Letcher % (Auto) Letcher # (Auto) Seg Neutrophils % Seg Neutrophils # ABG pH POC ABG pO2 132.3 H ABG pO2 ABG O2 Saturation ABG Base Excess ABG Oxyhemoglobin 98.3 H ABG Potassium 3.2 L ABG Chloride 109.0 H ABG Glucose 133 H Carboxyhemoglobin 0.2 L Potassium Chloride Carbon Dioxide BUN Creatinine Glucose POC Glucose 110 H Calcium Total Protein Arterial Blood Glucose 133 H Urine WBC (Auto) U Epithel Cells (Auto) Salicylates Acetaminophen Allied health notes reviewed: nursing
[2021-06-26] MEDS: cefTRIAXone/NS 2 GM/100 ML 2 GM/100 ML BAG IV SCH (16:19)
[2021-06-26] MEDS: AZITHROMYCIN/NS 500 MG/250 ML 500 MG/250 ML BAG IV SCH (16:20)
[2021-06-26] MEDS: ONDANSETRON 4 MG/2 ML INJ IV PRN ×2 (16:49→21:34)
[2021-06-26] MEDS: METOPROLOL TARTRATE 25 MG TAB PO SCH (21:35)
[2021-06-27] MEDS: INSULIN LISPRO 100 UNIT/ML SUB-Q SCH ×5 (03:46→23:00)
--- NOTE | 2021-06-27 04:10 | XRay Report ---
CHEST 1 VIEW 06/27/2021 3:45 AM INDICATION / CLINICAL INFORMATION: follow up respiratory failure. COMPARISON: Previous day. FINDINGS: SUPPORT DEVICES: Endotracheal tube and NG tube removed. HEART / MEDIASTINUM: No significant abnormality. LUNGS / PLEURA: No significant pulmonary or pleural abnormality. No pneumothorax. ADDITIONAL FINDINGS: No significant additional findings. IMPRESSION: The lungs are now clear. Signer Name: Larry George MD Signed: 06/27/2021 4:06 AM Workstation Name: [id number]
[2021-06-27] MEDS: D5W/0.9% NACL 1,000 ML IV SCH (05:04)
[2021-06-27 05:14] LABS: Hematocrit 37.3 % (30.3-42.9); Hemoglobin 12.2 gm/dl (10.1-14.3); Mean Corpuscular HGB Conc 33 % (30-34); Mean Corpuscular Volume 78 fl (79-97); Platelet Count 294 K/mm3 (140-440); Red Blood Count 4.77 M/mm3 (3.65-5.03)
[2021-06-27 05:43] LABS: Blood Urea Nitrogen 2 mg/dL (7-17); Hemolysis Index 10
[2021-06-27 05:52] LABS: BUN/Creatinine Ratio 5
--- NOTE | 2021-06-27 09:35 | Progress Note ---
Subjective - Reason for Consult Consult date: 06/27/21 Reason for consult: OD - Chief Complaint Chief complaint: The patient was seen this morning, she is calm and tearful. The patient reports that she was having relationship issues with her of 13 years years. When asked why she ingested the pesticide she states " maybe if I'm not feeling good my will forget the problems we are having." The patient reports feeling pressured from her estranged relationship with her family members, states she only speaks with her mother. The patient endorses ongoing depression for the past 3 years and never saw a psychiatrist. The patient states she lacks support since her would tell her " you don't have to feel that way, you have me and the children. " She denies any current suicidal/ homicidal ideation and denies hallucinations. PAST PSYCHIATRIC HISTORY: Diagnoses:Denies Suicide attempts or Self-harm behavior: Denies Prior psychiatric hospitalizations: Denies Substance Abuse history: Denies Previous psychiatric medications tried: Denies Outpatient treatment: Denies PAST MEDICAL HISTORY: Unknown Family Psychiatric History: None reported or documented SOCIAL HISTORY Marital Status: Living Arrangements: Lives and children Employment Status: unknown Access to guns/weapons: Denies Education:12th grade History of Abuse: Denies Legal History: Denies REVIEW OF SYSTEMS Constitutional: Negative for weight loss ENT: Negative for stridor Respiratory: Negative for cough or hemoptysis All other systems reviewed and are negative MENTAL STATUS EXAMINATION General Appearance and Behavior: Age appropriate, good hygiene, wearing appropriate clothes. calm, cooperative Cooperation: Cooperative Psychomotor Behavior: Psychomotor normal Mood: "Depressed" Affect and affective range: congruent with stated mood Thought Process: Goal directed Thought Content: Not suicidal Speech: normal tone and pace Suicidal Ideation: Denies, but possibly not being upfront Homicidal Ideation: Denies Hallucinations: Denies Delusions:None elicited Impulse Control: Limited Insight and Judgment: Limited insight and poor judgment Memory: Limited Attention: distracted Orientation: a/o x 3 Assessment (1)Major depressive disorder Current Visit: Yes Status: Acute Plan Continue 1013 Start Lexapro 10mg po daily Start Trazodone 50mg po QHS Sitter: Defer to primary Medical: Per primary Disposition: Recommend acute inpatient psychiatric treatment. Will follow Case staffed with Dr. Angelo Mental Status Exam - Vital signs Last Vital Signs Temp 99 F 06/27/21 08:00 Pulse 98 H 06/27/21 08:30 Resp 15 06/27/21 08:30 BP 140/87 06/27/21 08:30 Pulse Ox 98 06/27/21 08:30
[2021-06-27] MEDS ORDERED: POTASSIUM CHLORIDE ER 20 MEQ TAB PO SCH ×3 (10:00→14:00)
[2021-06-27] MEDS: SENNOSIDES/DOCUSATE SODIUM 8.6/50 MG TAB FEEDTUBE SCH ×2 (10:11→21:00)
[2021-06-27] MEDS: METOPROLOL TARTRATE 25 MG TAB PO SCH ×2 (10:11→21:01)
[2021-06-27] MEDS: FAMOTIDINE 20 MG/2 ML INJ IV SCH (10:11)
[2021-06-27] MEDS: ENOXAPARIN 40 MG/0.4 ML INJ SUB-Q SCH (10:12)
--- NOTE | 2021-06-27 13:24 | Event Note ---
Date: 06/27/21 DKA resolved to transfer out of ICU then to inpatient [facility] facility - discontinue Briones catheter - will sign off - please reconsult as needed
[2021-06-27] MEDS: ESCITALOPRAM 10 MG TAB PO SCH (14:07)
--- NOTE | 2021-06-27 15:31 | Progress Note ---
Assessment and Plan Assessment and plan: This is a 30-year-old female with no known medical history admitted s/p intentional ingestion of organophosphate, acute hypoxic respiratory failure, acute hypoxic respiratory failure, urinary tract infection and hypokalemia Neuro: Major depressive disorder, s/p suicide attempt with organophosphate inges tion -Psych consulted, appreciate recommendations -1013 status -Maintain sleep-wake cycle -prn ativan as needed -As needed analgesia -s/p Atropine and Charcoal activated CV: ST, ? hypertension -BB -BP monitoring per protocol -s/p IVF Pulm: s/p acute hypoxic respiratory failure -CCM consulted appreciate recommendations -Patient was intubated on 06/24 for airway protection and extubated on 06/26 -Pulmonary hygiene -Supplemental oxygen as needed -SPO2 monitoring GI: Morbid obesity -Passed speech evaluation -Cardiac diet -Encourage dietary and lifestyle modifications upon discharge -PPI -BR: Senokot : Hypokalemia -Repleat potassium -Trend BMP -Intervene as needed ID: Left lower lobe pneumonia, UTI -Evident on UA, urine culture with no growth today -COVID-19 PCR negative -06/25 CXR with suspected pneumonia -Empiric antibiotic therapy with ceftriaxone and azithromycin (06/25-06/27) -Follow culture data -Monitor fever curve -Remove Briones catheter today Endo: Hyperglycemia -A1c 5.8 -SSI -Accu-Cheks every 6 -Avoid hypoglycemia Heme: NAD -SCDs to bilateral ultrasound in bed -Lovenox subcu -Trend CBC -Transfuse for hemoglobin less than 7 The high probability of a clinically significant, sudden or life threatening deterioration of the [Respiratory, GI, endo] system(s) required my full and direct attention, intervention and personal management. The aggregate critical care time was [60] minutes. This time is in addition to time spent performing reported procedures but includes the following: [x] Data Review and interpretation [x] Patient assessment and monitoring of vital signs [x] Documentation [x] Medication orders and management Disposition Plan: ICU Total Time Spent with Patient (Minutes): 60 Disposition Plan: transfer to floor Total Time Spent with Patient (Minutes): 60 History Interval history: This is a 30-year-old female with no known past medical history presents the emergency department on 06/24 after intentional ingestion of organophosphate in a suicide attempt. On arrival to the emergency department patient was awake with slurred speech however became lethargic was intubated for airway protection. IV atropine and activated charcoal was given in the emergency department. Patient was admitted to the hospitalist service with organophosphate poisoning, acute hypoxic respiratory failure, urinary tract infection and hypokalemia. Hospital Course to Date: 06/25/21- Patient is intubated and sedated on propofol gtt RASS-2, following commands. s/p charcal activate and Atropine in the ED. Not much secretions this am, OGT to LIS with minimal output. Plan for SAT and SBT trial. CCM on consult. Will continue to monitor renal function, LFTs, and electrolytes. 06/26/21- Patient remains on the vent, no longer on sedation. Plan for SBT, TF held this am, OGT to LIS gastric bubble noted from this am XR. Plan for possible extubation today. Continue 1013 status. 06/27: Passed bedside swallow eval, sitter at bedside, will transfer to floor, mag/potassium replete, Briones removed Hospitalist Physical - Constitutional Vitals: Temp Pulse Resp BP Pulse Ox 98.9 F 89 19 126/81 99 06/27/21 12:00 06/27/21 11:30 06/27/21 11:30 06/27/21 11:30 06/27/21 11:00 General appearance: Present: no acute distress, well-nourished, other (Intubated) - EENT Eyes: Present: PERRL, EOM intact ENT: hearing intact, clear oral mucosa, dentition normal - Neck Neck: Present: supple, normal ROM - Respiratory Respiratory effort: normal Respiratory: bilateral: CTA - Cardiovascular Rhythm: regular Heart Sounds: Present: S1 & S2. Absent: systolic murmur, diastolic murmur - Extremities Extremities: no ischemia, pulses intact, pulses symmetrical, No edema, normal temperature, normal color, Full ROM Peripheral Pulses: within normal limits - Abdominal General gastrointestinal: soft, non-tender, non-distended, normal bowel sounds - Integumentary Integumentary: Present: warm, dry - Psychiatric Psychiatric: cooperative - Neurologic Neurologic: CNII-XII intact, no focal deficits, moves all extremities - Allied Health Allied health notes reviewed: nursing, RT, social work Results - Labs CBC & Chem 7: 06/27/21 04:25 06/27/21 04:25 Labs: Laboratory Last Values WBC 8.5 K/mm3 (4.5-11.0) 06/27/21 04:25 RBC 4.77 M/mm3 (3.65-5.03) 06/27/21 04:25 Hgb 12.2 gm/dl (10.1-14.3) 06/27/21 04:25 Hct 37.3 % (30.3-42.9) 06/27/21 04:25 MCV 78 fl (79-97) L 06/27/21 04:25 MCH 26 pg (28-32) L 06/27/21 04:25 MCHC 33 % (30-34) 06/27/21 04:25 RDW 14.0 % (13.2-15.2) 06/27/21 04:25 Plt Count 294 K/mm3 (140-440) 06/27/21 04:25 Lymph % (Auto) 10.6 % (13.4-35.0) L 06/25/21 05:48 Wake % (Auto) 9.9 % (0.0-7.3) H 06/25/21 05:48 Eos % (Auto) 0.1 % (0.0-4.3) 06/25/21 05:48 Baso % (Auto) 0.1 % (0.0-1.8) 06/25/21 05:48 Lymph # (Auto) 1.2 K/mm3 (1.2-5.4) 06/25/21 05:48 Wake # (Auto) 1.1 K/mm3 (0.0-0.8) H 06/25/21 05:48 Eos # (Auto) 0.0 K/mm3 (0.0-0.4) 06/25/21 05:48 Baso # (Auto) 0.0 K/mm3 (0.0-0.1) 06/25/21 05:48 Seg Neutrophils % 79.3 % (40.0-70.0) H 06/25/21 05:48 Seg Neutrophils # 9.2 K/mm3 (1.8-7.7) H 06/25/21 05:48 ABG pH 7.430 (7.320-7.450) 06/26/21 12:50 POC ABG pCO2 36.9 mmHg (32.0-48.0) 06/26/21 12:50 ABG pCO2 33.2 mm Hg 06/25/21 15: POC ABG pO2 132.3 mmHg (83-108) H 06/26/21 12:50 ABG pO2 201.0 mm Hg (80.0-90.0) H 06/25/21 15: POC ABG HCO3 23.9 06/26/21 12:50 ABG HCO3 20.5 mmol/L (20.0-26.0) 06/25/21 15: ABG O2 Saturation 98.8 (0-100) 06/26/21 12:50 ABG O2 Content 21.4 (0.0-44) 06/25/21 15: POC ABG Base Excess -0.1 06/26/21 12:50 ABG Base Excess -3.3 mmol/L (-2.0-3.0) L 06/25/21 15: ABG Hemoglobin 12.6 (12.0-17.5) 06/26/21 12:50 ABG Oxyhemoglobin 98.3 (94-98) H 06/26/21 12:50 ABG Carboxyhemoglobin 0.9 % (0.0-5.0) 06/25/21 15: ABG Methemoglobin 0.3 (0.0-1.5) 06/26/21 12:50 ABG Sodium 138.9 mmol/L (136.0-145.0) 06/26/21 12:50 ABG Potassium 3.2 mmol/L (3.40-4.50) L 06/26/21 12:50 ABG Chloride 109.0 mmol/L (98-107) H 06/26/21 12:50 ABG Glucose 133 mg/dL (65-95) H 06/26/21 12:50 Oxyhemoglobin 97.9 % (95.0-99.0) 06/25/21 15: Carboxyhemoglobin 0.2 (0.5-1.5) L 06/26/21 12:50 FiO2 40 % 06/25/21 15: FiO2 % 30.0 06/26/21 12:50 Sodium 140 mmol/L (137-145) 06/27/21 04:25 Potassium 3.1 mmol/L (3.6-5.0) L D 06/27/21 04:25 Chloride 104.8 mmol/L (98-107) 06/27/21 04:25 Carbon Dioxide 24 mmol/L (22-30) D 06/27/21 04:25 Anion Gap 14 mmol/L 06/27/21 04:25 BUN 2 mg/dL (7-17) L 06/27/21 04:25 Creatinine 0.4 mg/dL (0.6-1.2) L 06/27/21 04:25 Estimated GFR > 60 ml/min 06/27/21 04:25 BUN/Creatinine Ratio 5 % 06/27/21 04:25 Glucose 129 mg/dL (65-100) H 06/27/21 04:25 POC Glucose 119 mg/dL (70-105) H 06/27/21 05:15 Hemoglobin A1c 5.8 % (4-6) 06/26/21 05:48 Calcium 8.0 mg/dL (8.4-10.2) L 06/27/21 04:25 Total Bilirubin 0.40 mg/dL (0.1-1.2) 06/25/21 05:48 AST 26 units/L (5-40) 06/25/21 05:48 ALT 18 units/L (7-56) 06/25/21 05:48 Alkaline Phosphatase 86 units/L (35-129) 06/25/21 05:48 Total Protein 8.2 g/dL (6.3-8.2) 06/25/21 05:48 Albumin 4.2 g/dL (3.9-5) 06/25/21 05:48 Albumin/Globulin Ratio 1.1 % 06/25/21 05:48 Triglycerides 101 mg/dL (2-149) 06/26/21 06:59 Lipase 19 units/L (13-60) 06/24/21 13:38 Arterial Blood Glucose 133 mg/dL (65-95) H 06/26/21 12:50 Arterial Blood Ionized Calcium 4.6 mg/dL (4.6-5.3) 06/26/21 12:50 Urine Color Yellow (Yellow) 06/24/21 15:37 Urine Turbidity Cloudy (Clear) 06/24/21 15:37 Urine pH 5.0 (5.0-7.0) 06/24/21 15:37 Ur Specific [place] 1.020 (1.003-1.030) 06/24/21 15:37 Urine Protein <15 mg/dl mg/dL (Negative) 06/24/21 15:37 Urine Glucose (UA) >=500 mg/dL (Negative) 06/24/21 15:37 Urine Ketones 80 mg/dL (Negative) 06/24/21 15:37 Urine Blood Sm (Negative) 06/24/21 15:37 Urine Nitrite Neg (Negative) 06/24/21 15:37 Urine Bilirubin Neg (Negative) 06/24/21 15:37 Urine Urobilinogen < 2.0 mg/dL (<2.0) 06/24/21 15:37 Ur Leukocyte Esterase Lg (Negative) 06/24/21 15:37 Urine WBC (Auto) 42.0 /HPF (0.0-6.0) H 06/24/21 15:37 Urine RBC (Auto) 102.0 /HPF (0.0-6.0) 06/24/21 15:37 U Epithel Cells (Auto) 31.0 /HPF (0-13.0) H 06/24/21 15:37 Urine Bacteria (Auto) 1+ /HPF (Negative) 06/24/21 15:37 Urine WBC Clumps Few /HPF 06/24/21 15:37 Urine Mucus 1+ /HPF 06/24/21 15:37 Urine Yeast (Budding) 2+ /HPF 06/24/21 15:37 Urine HCG, Qual Negative (Negative) 06/24/21 15:37 Salicylates < 0.3 mg/dL (2.8-20.0) L 06/24/21 13:57 Urine Opiates Screen Negative 06/24/21 15:37 Urine Methadone Screen Negative 06/24/21 15:37 Acetaminophen 5.0 ug/mL (10.0-30.0) L 06/24/21 13:57 Ur Barbiturates Screen Negative 06/24/21 15:37 Ur Phencyclidine Scrn Negative 06/24/21 15:37 Ur Amphetamines Screen Negative 06/24/21 15:37 U Benzodiazepines Scrn Negative 06/24/21 15:37 Urine Cocaine Screen Negative 06/24/21 15:37 U Marijuana (THC) Screen Negative 06/24/21 15:37 Drugs of Abuse Note Disclamer 06/24/21 15:37 Plasma/Serum Alcohol < 0.01 % (0-0.07) 06/24/21 13:39 Coronavirus (PCR) Negative (Negative) 06/25/21 09:25 Microbiology: Microbiology 06/24/21 15:37 Urine,Clean Catch Urine Culture - Final 06/24/21 15:15 Tracheal Aspirate Sputum Culture - Final Briones/IV: Voiding Method Indwelling Catheter Active Medications - Current Medications Current Medications: Generic Name Dose Route Start Last Admin Trade Name Freq PRN Reason Stop Dose Admin Acetaminophen 650 mg 06/24/21 17:39 Acetaminophen 650 Mg Rect Supp TX Q4H PRN Pain MILD(1-3)/Fever >100.5/MOE Lipase/Protease/Amylase 1 each 06/25/21 13:50 Lipase 10,500/Protease 25,000/Amylase 43,750 (Units) Dr Cap FEEDTUBE PRN PRN For Clogged Feeding Tube Atropine Sulfate 1 mg 06/24/21 17:42 Atropine 1 Mg/Ml Vial IV Q6H PRN Bradycardia Dextrose 50 ml 06/25/21 14:55 Dextrose 50% In Water (25gm) 50 Ml Syringe IV Q30MIN PRN Hypoglycemia Protocol Enoxaparin Sodium 40 mg 06/24/21 18:00 06/27/21 10:12 Enoxaparin 40 Mg/0.4 Ml Inj SUB-Q 40 mg QDAY KAREY Administration Escitalopram Oxalate 10 mg 06/27/21 11:00 06/27/21 14:07 Escitalopram 10 Mg Tab PO 10 mg QDAY KAREY Administration Famotidine 40 mg 06/27/21 22:00 Famotidine 20 Mg Tab PO QHS KAREY Hydralazine HCl 10 mg 06/25/21 15:19 06/26/21 21:34 Hydralazine 20 Mg/1 Ml Inj IV 10 mg Q4HR PRN Administration Hypertension Hydrophilic Ointment 1 applic 06/24/21 14:14 Lip Therapy Vaseline TP Q2HR PRN Dry Lips Azithromycin 500 mg in 250 mls @ 250 mls/hr 06/25/21 16:00 06/26/21 16:20 Zithromax/Ns IV 06/27/21 16:59 250 mls/hr Q24H KAREY Administration Ceftriaxone Sodium 2 gm in 100 mls @ 200 mls/hr 06/25/21 16:00 06/26/21 16:19 Rocephin/Ns 2 Gm/100 Ml IV 06/27/21 16:29 200 mls/hr Q24H KAREY Administration Protocol Insulin Human Lispro 0 unit 06/25/21 18:00 06/27/21 06:16 Insulin Lispro 100 Unit/Ml SUB-Q Not Given Q6HR KAREY Protocol Lorazepam 1 mg 06/25/21 14:12 06/26/21 06:41 Lorazepam 2 Mg/Ml Vial IV 1 mg Q4H PRN Administration Agitation Metoprolol Tartrate 12.5 mg 06/26/21 22:00 06/27/21 10:11 Metoprolol Tartrate 25 Mg Tab PO 12.5 mg BID KAREY Administration Multi-Ingred Cream/Lotion/Oil/Oint 1 applic 06/24/21 14:14 Mineral Oil/Petrolatum, White Ophth Oint 3.5 Gm OU Q4HR PRN Dry Eye(s) Ondansetron HCl 4 mg 06/24/21 17:39 06/26/21 21:34 Ondansetron 4 Mg/2 Ml Inj IV 4 mg Q8H PRN Administration Nausea And Vomiting Oxycodone/Acetaminophen 1 tab 06/27/21 11:00 Oxycodone /Acetaminophen 5-325mg Tab PO Q8H PRN Pain, Moderate (4-6) Potassium Chloride 40 meq 06/27/21 14:00 06/27/21 14:07 Potassium Chloride Er 20 Meq Tab PO 06/27/21 18:00 40 meq ONCE@1400 KAREY Administration Senna/Docusate Sodium 1 tab 06/24/21 22:00 06/27/21 10:11 Sennosides/Docusate Sodium 8.6/50 Mg Tab FEEDTUBE 1 tab BID KAREY Administration Simple Syrup 15 ml 06/25/21 13:50 Simple Syrup 15 Ml FEEDTUBE PRN PRN Hypoglycemia Simple Syrup 30 ml 06/25/21 13:50 Simple Syrup 15 Ml FEEDTUBE PRN PRN Hypoglycemia Sodium Bicarbonate 325 mg 06/25/21 13:50 Sodium Bicarbonate 325 Mg Tab FEEDTUBE PRN PRN For Clogged Feeding Tube Sodium Chloride 10 ml 06/24/21 22:00 06/27/21 10:13 Sodium Chloride 0.9% 10 Ml Flush Syringe IV 10 ml BID KAREY Administration Sodium Chloride 10 ml 11/12/21 17:39 Sodium Chloride 0.9% 10 Ml Flush Syringe IV PRN PRN LINE FLUSH Trazodone HCl 50 mg 06/27/21 22:00 Trazodone 50 Mg Tab PO QHS KAREY Nutrition/Malnutrition Assess - Dietary Evaluation Nutrition/Malnutrition Findings: Nutrition Notes Start: 06/25/21 10:38 Freq: Status: Active Protocol: Document 06/25/21 10:38 IGNACIO (Rec: 06/25/21 10:49 [email or web address] [id number]) Nutrition Notes Need for Assessment generated from: MD Order Initial or Follow up Assessment Current Diagnosis Sepsis,Respiratory Failure Other Pertinent Diagnosis Attempted suicide, LLL pneu, UTI Current Diet No diet ordered Labs/Tests Reviewed Pertinent Medications D5NS at 125ml/hr, Ativan gtt, Senokot, Propofol at 34.019ml/ hr (provides 898 kcal) Height 5 ft 2 in Weight 113.398 kg [place] Body Weight (kg) 50.00 BMI 45.7 Weight Status Morbidly Obese Subjective/Other Information RD consulted to evaluate nutritional intake and for TF. Pt intubated to protect airway. She attempted suicide via drinking ant killer. Burn Absent Trauma Absent Minimum of two criteria No #1 Nutrition Diagnosis Swallowing difficulty Etiology mech ventilation As Evidenced by Signs and Symptoms pt NPO Is patient on ventilator? Yes Is Patient Ambulatory and/or Out of Bed No REE-([facility]-confined to bed) 2182.008 Kcal/Kg value to use for calculation 14 Approximate Energy Requirements Using 1588 kcal/Kg Calculation Used for Recommendations Kcal/kg Additional Notes Pro needs up to 2.5g/kg IBW: up to 125g/day Fluid needs 1ml/kcal Nutrition Intervention Nutrition Support: Promote at 65ml/hr with 50ml water flush q4h. Kcal 1,560 Protein (gm) 98 Carbohydrates (gm) 203 Fat (gm) 41 Fluid (mL) 1,309 Fiber (gm) 0 Goal #1 TF tolerance Goal #2 TF (at goal rate) to meet at least 65-70% energy and 75% pro needs Anticipated Discharge Needs: Unable to identify at this time Follow-Up By: 06/28/21 Additional Comments F/U: new TF, vent status
[2021-06-27] MEDS: cefTRIAXone/NS 2 GM/100 ML 2 GM/100 ML BAG IV SCH (16:27)
[2021-06-27] MEDS: AZITHROMYCIN/NS 500 MG/250 ML 500 MG/250 ML BAG IV SCH (16:28)
[2021-06-27] MEDS: oxyCODONE /ACETAMINOPHEN 5-325MG TAB PO PRN (16:36)
[2021-06-27] MEDS ORDERED: traZODone 50 MG TAB PO SCH (22:00)
[2021-06-27] MEDS ORDERED: FAMOTIDINE 20 MG TAB PO SCH (22:00)
--- NOTE | 2021-06-28 02:50 | XRay Report ---
CHEST 1 VIEW 06/28/2021 1:36 AM INDICATION / CLINICAL INFORMATION: follow up respiratory failure. COMPARISON: Previous day. FINDINGS: SUPPORT DEVICES: None. HEART / MEDIASTINUM: No significant abnormality. LUNGS / PLEURA: No significant pulmonary or pleural abnormality. No pneumothorax. ADDITIONAL FINDINGS: No significant additional findings. IMPRESSION: No acute abnormality. Signer Name: Larry George MD Signed: 06/28/2021 2:46 AM Workstation Name: [id number]
[2021-06-28] MEDS: INSULIN LISPRO 100 UNIT/ML SUB-Q SCH (05:04)
[2021-06-28 05:43] LABS: Blood Urea Nitrogen 6 mg/dL (7-17); Calcium 8.8 mg/dL (8.4-10.2); Hemolysis Index 8
[2021-06-28 05:49] LABS: BUN/Creatinine Ratio 12
[2021-06-28] MEDS: oxyCODONE /ACETAMINOPHEN 5-325MG TAB PO PRN (09:46)
[2021-06-28] MEDS: METOPROLOL TARTRATE 25 MG TAB PO SCH (09:47)
[2021-06-28] MEDS: SENNOSIDES/DOCUSATE SODIUM 8.6/50 MG TAB FEEDTUBE SCH (09:47)
[2021-06-28] MEDS: ESCITALOPRAM 10 MG TAB PO SCH (09:47)
[2021-06-28] MEDS: ENOXAPARIN 40 MG/0.4 ML INJ SUB-Q SCH (09:48)
[2021-06-28] MEDS ORDERED: ACETAMINOPHEN 325 MG TAB PO PRN (10:00)
--- NOTE | 2021-06-28 10:45 | Electrocardiograph Report ---
[facility] Test Date: 2021-06-24 Test Time: 16:17:01 Pat Name: ROMAN SERRANO Department: Room: A254 1 Gender: F Director [employer]: GP : 1990 Requested By: KYLE GUILLAUME Order Number: [id number] Reading MD: Patrick Tristan Measurements Intervals [place] Rate: 93 P: 59 HI: 164 QRS: 58 QRSD: 102 T: 41 QT: 389 QTc: 485 Interpretive Statements Sinus rhythm No previous ECG available for comparison Electronically Signed On 06-28-2021 10:45:19 EST by Patrick Tristan
[2021-06-28] MEDS ORDERED: INSULIN LISPRO 100 UNIT/ML SUB-Q SCH (11:30)
--- NOTE | 2021-06-28 11:53 | Progress Note ---
Assessment and Plan Assessment and plan: This is a 30-year-old female with no known medical history admitted s/p intentional ingestion of organophosphate, acute hypoxic respiratory failure, acute hypoxic respiratory failure, urinary tract infection and hypokalemia Neuro: Major depressive disorder, s/p suicide attempt with organophosphate ingestion -Psych consulted, appreciate recommendations -1013 status -will be rescinded today per psych -Maintain sleep-wake cycle -prn ativan as needed -As needed analgesia -s/p Atropine and Charcoal activated -trazodone and lexapro CV: ST, ? hypertension -BB -BP monitoring per protocol -s/p IVF Pulm: s/p acute hypoxic respiratory failure -CCM consulted appreciate recommendations -Patient was intubated on 06/24 for airway protection and extubated on 06/26 -Pulmonary hygiene -Supplemental oxygen as needed -SPO2 monitoring GI: Morbid obesity -Passed speech evaluation -Cardiac diet -Encourage dietary and lifestyle modifications upon discharge -PPI -BR: Senokot -24 hours +1086ml : NAD -Trend BMP -Intervene as needed ID: Left lower lobe pneumonia, UTI -Evident on UA, urine culture with no growth today -COVID-19 PCR negative -06/25 CXR with suspected pneumonia -s/p ceftriaxone and azithromycin (06/25-06/27) -Follow culture data -Monitor fever curve Endo: Hyperglycemia -A1c 5.8 -SSI -Accu-Cheks every 6 -Avoid hypoglycemia Heme: NAD -SCDs to bilateral LE while in bed -Lovenox subcu -Trend CBC -Transfuse for hemoglobin less than 7 The high probability of a clinically significant, sudden or life threatening deterioration of the [Respiratory, GI, endo] system(s) required my full and direct attention, intervention and personal management. The aggregate critical care time was [60] minutes. This time is in addition to time spent performing reported procedures but includes the following: [x] Data Review and interpretation [x] Patient assessment and monitoring of vital signs [x] Documentation [x] Medication orders and management Disposition Plan: transfer to floor Total Time Spent with Patient (Minutes): 60 History Interval history: This is a 30-year-old female with no known past medical history presents the emergency department on 06/24 after intentional ingestion of organophosphate in a suicide attempt. On arrival to the emergency department patient was awake with slurred speech however became lethargic was intubated for airway protection. IV atropine and activated charcoal was given in the emergency department. Patient was admitted to the hospitalist service with organophosphate poisoning, acute hypoxic respiratory failure, urinary tract infection and hypokalemia. Hospital Course to Date: 06/25/21- Patient is intubated and sedated on propofol gtt RASS-2, following commands. s/p charcal activate and Atropine in the ED. Not much secretions this am, OGT to LIS with minimal output. Plan for SAT and SBT trial. CCM on consult. Will continue to monitor renal function, LFTs, and electrolytes. 06/26/21- Patient remains on the vent, no longer on sedation. Plan for SBT, TF held this am, OGT to LIS gastric bubble noted from this am XR. Plan for possible extubation today. Continue 1013 status. 06/27: Passed bedside swallow eval, sitter at bedside, will transfer to floor, mag/potassium replete, Briones removed 06/28: awaiting bed on the floor, no acute distress. psych verbally stated they would rescind 1013 today. Hospitalist Physical - Constitutional Vitals: Temp Pulse Resp BP Pulse Ox 98.0 F 80 17 124/80 100 06/28/21 11:42 06/28/21 10:00 06/28/21 10:00 06/28/21 10:00 06/28/21 10:29 General appearance: Present: no acute distress, well-nourished, obese, other - EENT Eyes: Present: PERRL, EOM intact ENT: hearing intact, clear oral mucosa, dentition normal - Neck Neck: Present: supple, normal ROM - Respiratory Respiratory effort: normal Respiratory: bilateral: CTA - Cardiovascular Rhythm: regular Heart Sounds: Present: S1 & S2. Absent: systolic murmur, diastolic murmur - Extremities Extremities: no ischemia, pulses intact, pulses symmetrical, No edema, normal temperature, normal color, Full ROM Peripheral Pulses: within normal limits - Abdominal General gastrointestinal: soft, non-tender, non-distended, normal bowel sounds - Integumentary Integumentary: Present: warm, dry - Psychiatric Psychiatric: cooperative - Neurologic Neurologic: CNII-XII intact, no focal deficits, moves all extremities - Allied Health Allied health notes reviewed: nursing, RT, social work Results - Labs CBC & Chem 7: 06/27/21 04:25 06/28/21 04:40 Labs: Laboratory Last Values WBC 8.5 K/mm3 (4.5-11.0) 06/27/21 04:25 RBC 4.77 M/mm3 (3.65-5.03) 06/27/21 04:25 Hgb 12.2 gm/dl (10.1-14.3) 06/27/21 04:25 Hct 37.3 % (30.3-42.9) 06/27/21 04:25 MCV 78 fl (79-97) L 06/27/21 04:25 MCH 26 pg (28-32) L 06/27/21 04:25 MCHC 33 % (30-34) 06/27/21 04:25 RDW 14.0 % (13.2-15.2) 06/27/21 04:25 Plt Count 294 K/mm3 (140-440) 06/27/21 04:25 Lymph % (Auto) 10.6 % (13.4-35.0) L 06/25/21 05:48 [place] % (Auto) 9.9 % (0.0-7.3) H 06/25/21 05:48 Eos % (Auto) 0.1 % (0.0-4.3) 06/25/21 05:48 Baso % (Auto) 0.1 % (0.0-1.8) 06/25/21 05:48 Lymph # (Auto) 1.2 K/mm3 (1.2-5.4) 06/25/21 05:48 [place] # (Auto) 1.1 K/mm3 (0.0-0.8) H 06/25/21 05:48 Eos # (Auto) 0.0 K/mm3 (0.0-0.4) 06/25/21 05:48 Baso # (Auto) 0.0 K/mm3 (0.0-0.1) 06/25/21 05:48 Seg Neutrophils % 79.3 % (40.0-70.0) H 06/25/21 05:48 Seg Neutrophils # 9.2 K/mm3 (1.8-7.7) H 06/25/21 05:48 ABG pH 7.430 (7.320-7.450) 06/26/21 12:50 POC ABG pCO2 36.9 mmHg (32.0-48.0) 06/26/21 12:50 ABG pCO2 33.2 mm Hg 06/25/21 15: POC ABG pO2 132.3 mmHg (83-108) H 06/26/21 12:50 ABG pO2 201.0 mm Hg (80.0-90.0) H 06/25/21 15: POC ABG HCO3 23.9 06/26/21 12:50 ABG HCO3 20.5 mmol/L (20.0-26.0) 06/25/21 15: ABG O2 Saturation 98.8 (0-100) 06/26/21 12:50 ABG O2 Content 21.4 (0.0-44) 06/25/21 15: POC ABG Base Excess -0.1 06/26/21 12:50 ABG Base Excess -3.3 mmol/L (-2.0-3.0) L 06/25/21 15: ABG Hemoglobin 12.6 (12.0-17.5) 06/26/21 12:50 ABG Oxyhemoglobin 98.3 (94-98) H 06/26/21 12:50 ABG Carboxyhemoglobin 0.9 % (0.0-5.0) 06/25/21 15: ABG Methemoglobin 0.3 (0.0-1.5) 06/26/21 12:50 ABG Sodium 138.9 mmol/L (136.0-145.0) 06/26/21 12:50 ABG Potassium 3.2 mmol/L (3.40-4.50) L 06/26/21 12:50 ABG Chloride 109.0 mmol/L (98-107) H 06/26/21 12:50 ABG Glucose 133 mg/dL (65-95) H 06/26/21 12:50 Oxyhemoglobin 97.9 % (95.0-99.0) 06/25/21 15: Carboxyhemoglobin 0.2 (0.5-1.5) L 06/26/21 12:50 FiO2 40 % 06/25/21 15:27 FiO2 % 30.0 06/26/21 12:50 Sodium 140 mmol/L (137-145) 06/28/21 04:40 Potassium 4.4 mmol/L (3.6-5.0) D 06/28/21 04:40 Chloride 105.0 mmol/L (98-107) 06/28/21 04:40 Carbon Dioxide 26 mmol/L (22-30) 06/28/21 04:40 Anion Gap 13 mmol/L 06/28/21 04:40 BUN 6 mg/dL (7-17) L 06/28/21 04:40 Creatinine 0.5 mg/dL (0.6-1.2) L 06/28/21 04:40 Estimated GFR > 60 ml/min 06/28/21 04:40 BUN/Creatinine Ratio 12 % 06/28/21 04:40 Glucose 94 mg/dL (65-100) 06/28/21 04:40 POC Glucose 86 mg/dL (70-105) 06/28/21 11:40 Hemoglobin A1c 5.8 % (4-6) 06/26/21 05:48 Calcium 8.8 mg/dL (8.4-10.2) 06/28/21 04:40 Phosphorus 3.30 mg/dL (2.5-4.5) 06/28/21 04:40 Magnesium 1.80 mg/dL (1.7-2.3) 06/28/21 04:40 Total Bilirubin 0.40 mg/dL (0.1-1.2) 06/25/21 05:48 AST 26 units/L (5-40) 06/25/21 05:48 ALT 18 units/L (7-56) 06/25/21 05:48 Alkaline Phosphatase 86 units/L (35-129) 06/25/21 05:48 Total Protein 8.2 g/dL (6.3-8.2) 06/25/21 05:48 Albumin 4.2 g/dL (3.9-5) 06/25/21 05:48 Albumin/Globulin Ratio 1.1 % 06/25/21 05:48 Triglycerides 101 mg/dL (2-149) 06/26/21 06:59 Lipase 19 units/L (13-60) 06/24/21 13:38 Arterial Blood Glucose 133 mg/dL (65-95) H 06/26/21 12:50 Arterial Blood Ionized Calcium 4.6 mg/dL (4.6-5.3) 06/26/21 12:50 Urine Color Yellow (Yellow) 06/24/21 15:37 Urine Turbidity Cloudy (Clear) 06/24/21 15:37 Urine pH 5.0 (5.0-7.0) 06/24/21 15:37 Ur Specific [place] 1.020 (1.003-1.030) 06/24/21 15:37 Urine Protein <15 mg/dl mg/dL (Negative) 06/24/21 15:37 Urine Glucose (UA) >=500 mg/dL (Negative) 06/24/21 15:37 Urine Ketones 80 mg/dL (Negative) 06/24/21 15:37 Urine Blood Sm (Negative) 06/24/21 15:37 Urine Nitrite Neg (Negative) 06/24/21 15:37 Urine Bilirubin Neg (Negative) 06/24/21 15:37 Urine Urobilinogen < 2.0 mg/dL (<2.0) 06/24/21 15:37 Ur Leukocyte Esterase Lg (Negative) 06/24/21 15:37 Urine WBC (Auto) 42.0 /HPF (0.0-6.0) H 06/24/21 15:37 Urine RBC (Auto) 102.0 /HPF (0.0-6.0) 06/24/21 15:37 U Epithel Cells (Auto) 31.0 /HPF (0-13.0) H 06/24/21 15:37 Urine Bacteria (Auto) 1+ /HPF (Negative) 06/24/21 15:37 Urine WBC Clumps Few /HPF 06/24/21 15:37 Urine Mucus 1+ /HPF 06/24/21 15:37 Urine Yeast (Budding) 2+ /HPF 06/24/21 15:37 Urine HCG, Qual Negative (Negative) 06/24/21 15:37 Salicylates < 0.3 mg/dL (2.8-20.0) L 06/24/21 13:57 Urine Opiates Screen Negative 06/24/21 15:37 Urine Methadone Screen Negative 06/24/21 15:37 Acetaminophen 5.0 ug/mL (10.0-30.0) L 06/24/21 13:57 Ur Barbiturates Screen Negative 06/24/21 15:37 Ur Phencyclidine Scrn Negative 06/24/21 15:37 Ur Amphetamines Screen Negative 06/24/21 15:37 U Benzodiazepines Scrn Negative 06/24/21 15:37 Urine Cocaine Screen Negative 06/24/21 15:37 U Marijuana (THC) Screen Negative 06/24/21 15:37 Drugs of Abuse Note Disclamer 06/24/21 15:37 Plasma/Serum Alcohol < 0.01 % (0-0.07) 06/24/21 13:39 Coronavirus (PCR) Negative (Negative) 06/25/21 09:25 Microbiology: Microbiology 06/24/21 15:37 Urine,Clean Catch Urine Culture - Final Briones/IV: Voiding Method Toilet Active Medications - Current Medications Current Medications: Generic Name Dose Route Start Last Admin Trade Name Freq PRN Reason Stop Dose Admin Acetaminophen 650 mg 06/28/21 10:00 Acetaminophen 325 Mg Tab PO Q4H PRN Pain MILD(1-3)/Fever >100.5/MOE Atropine Sulfate 1 mg 06/24/21 17:42 Atropine 1 Mg/Ml Vial IV Q6H PRN Bradycardia Dextrose 50 ml 06/25/21 14:55 Dextrose 50% In Water (25gm) 50 Ml Syringe IV Q30MIN PRN Hypoglycemia Protocol Enoxaparin Sodium 40 mg 06/24/21 18:00 06/28/21 09:48 Enoxaparin 40 Mg/0.4 Ml Inj SUB-Q 40 mg QDAY KAREY Administration Escitalopram Oxalate 10 mg 06/27/21 11:00 06/28/21 09:47 Escitalopram 10 Mg Tab PO 10 mg QDAY KAREY Administration Famotidine 40 mg 06/27/21 22:00 06/27/21 21:00 Famotidine 20 Mg Tab PO 40 mg QHS KAREY Administration Hydralazine HCl 10 mg 06/25/21 15:19 06/26/21 21:34 Hydralazine 20 Mg/1 Ml Inj IV 10 mg Q4HR PRN Administration Hypertension Hydrophilic Ointment 1 applic 06/24/21 14:14 Lip Therapy Vaseline TP Q2HR PRN Dry Lips Insulin Human Lispro 0 unit 06/28/21 11:30 Insulin Lispro 100 Unit/Ml SUB-Q ACHS KAREY Protocol Lorazepam 1 mg 06/25/21 14:12 06/26/21 06:41 Lorazepam 2 Mg/Ml Vial IV 1 mg Q4H PRN Administration Agitation Metoprolol Tartrate 12.5 mg 06/26/21 22:00 06/28/21 09:47 Metoprolol Tartrate 25 Mg Tab PO 12.5 mg BID KAREY Administration Multi-Ingred Cream/Lotion/Oil/Oint 1 applic 06/24/21 14:14 Mineral Oil/Petrolatum, White Ophth Oint 3.5 Gm OU Q4HR PRN Dry Eye(s) Ondansetron HCl 4 mg 06/24/21 17:39 06/26/21 21:34 Ondansetron 4 Mg/2 Ml Inj IV 4 mg Q8H PRN Administration Nausea And Vomiting Oxycodone/Acetaminophen 1 tab 06/27/21 11:00 06/28/21 09:46 Oxycodone /Acetaminophen 5-325mg Tab PO 1 tab Q8H PRN Administration Pain, Moderate (4-6) Senna/Docusate Sodium 1 tab 06/24/21 22:00 06/28/21 09:47 Sennosides/Docusate Sodium 8.6/50 Mg Tab FEEDTUBE 1 tab BID KAREY Administration Sodium Chloride 10 ml 06/24/21 22:00 06/28/21 09:50 Sodium Chloride 0.9% 10 Ml Flush Syringe IV 10 ml BID KAREY Administration Sodium Chloride 10 ml 06/24/21 17:39 Sodium Chloride 0.9% 10 Ml Flush Syringe IV PRN PRN LINE FLUSH Trazodone HCl 50 mg 06/27/21 22:00 06/27/21 21:00 Trazodone 50 Mg Tab PO 50 mg QHS KAREY Administration Nutrition/Malnutrition Assess - Dietary Evaluation Nutrition/Malnutrition Findings: Nutrition Notes Start: 06/25/21 10: 38 Freq: Status: Active Protocol: Document 06/25/21 10:38 IGNACIO (Rec: 06/25/21 10:49 [email or web address] [id number]) Nutrition Notes Need for Assessment generated from: MD Order Initial or Follow up Assessment Current Diagnosis Sepsis,Respiratory Failure Other Pertinent Diagnosis Attempted suicide, LLL pneu, UTI Current Diet No diet ordered Labs/Tests Reviewed Pertinent Medications D5NS at 125ml/hr, Ativan gtt, Senokot, Propofol at 34.019ml/ hr (provides 898 kcal) Height 5 ft 2 in Weight 113.398 kg [place] Body Weight (kg) 50.00 BMI 45.7 Weight Status Morbidly Obese Subjective/Other Information RD consulted to evaluate nutritional intake and for TF. Pt intubated to protect airway. She attempted suicide via drinking ant killer. Burn Absent Trauma Absent Minimum of two criteria No #1 Nutrition Diagnosis Swallowing difficulty Etiology mech ventilation As Evidenced by Signs and Symptoms pt NPO Is patient on ventilator? Yes Is Patient Ambulatory and/or Out of Bed No REE-([facility]-confined to bed) 2182.008 Kcal/Kg value to use for calculation 14 Approximate Energy Requirements Using 1588 kcal/Kg Calculation Used for Recommendations Kcal/kg Additional Notes Pro needs up to 2.5g/kg IBW: up to 125g/day Fluid needs 1ml/kcal Nutrition Intervention Nutrition Support: Promote at 65ml/hr with 50ml water flush q4h. Kcal 1,560 Protein (gm) 98 Carbohydrates (gm) 203 Fat (gm) 41 Fluid (mL) 1,309 Fiber (gm) 0 Goal #1 TF tolerance Goal #2 TF (at goal rate) to meet at least 65-70% energy and 75% pro needs Anticipated Discharge Needs: Unable to identify at this time Follow-Up By: 06/28/21 Additional Comments F/U: new TF, vent status
--- NOTE | 2021-06-28 11:57 | Progress Note ---
Subjective - Reason for Consult Consult date: 06/28/21 Reason for consult: OD - Chief Complaint Chief complaint: The patient was seen this morning. The patient reports doing well. She states depression is improving, she reports having a good conversation with her and children. States sleep and appetite as good. The patient denies any current suicidal/homicidal ideation and denies hallucinations. REVIEW OF SYSTEMS Constitutional: Negative for weight loss ENT: Negative for stridor Respiratory: Negative for cough or hemoptysis All other systems reviewed and are negative MENTAL STATUS EXAMINATION General Appearance and Behavior: Age appropriate, good hygiene, wearing appropriate clothes. calm, cooperative Cooperation: Cooperative Psychomotor Behavior: Psychomotor normal Mood: "ok" Affect and affective range: congruent with stated mood Thought Process: Goal directed Thought Content: Not suicidal Speech: normal tone and pace Suicidal Ideation: Denies, but possibly not being upfront Homicidal Ideation: Denies Hallucinations: Denies Delusions:None elicited Impulse Control: Limited Insight and Judgment: Limited insight and good judgment Memory: Limited Attention: distracted Orientation: a/o x 3 Assessment (1)Major depressive disorder Current Visit: Yes Status: Acute Plan Discontinue 1013 Continue Lexapro 10mg po daily ContinueTrazodone 50mg po QHS Sitter: Defer to primary Medical: Per primary Disposition:Do not recommend acute inpatient psychiatric treatment. The patient understands that if suicidal/homicidal or any endangering thoughts /behavior arise, they should immediately seek for emergent assistance including but not limited to crisis hot line and emergency room. Follow up with outpatient psychiatrist and PCP within 7- 14 days of discharge. [employer] will provide patient with safety plan and psychiatric out-patient resources. Will sign off Case staffed with Dr. Angelo Mental Status Exam - Vital signs Last Vital Signs Temp 98.0 F 06/28/21 11:42 Pulse 80 06/28/21 10:00 Resp 17 06/28/21 10:00 BP 124/80 06/28/21 10:00 Pulse Ox 100 06/28/21 10:29
--- NOTE | 2021-06-28 15:32 | Discharge Summary ---
Providers - Providers Date of Admission: 06/24/21 17:07 Date of discharge: 06/28/21 Attending physician: EMELINA ORDONEZ MD 06/24/21 13:38 Consult to Mental Health [CONS] Urgent Reason For Exam: Overdose 06/24/21 17:07 Consult to Physician [CONS] Urgent Comment: Consulting Provider: DANIEL FERNANDEZ Physician Instructions: Reason For Exam: organophosphate OD 06/24/21 18:50 Consult to Physician [CONS] Urgent Comment: Consulting Provider: DANIEL FERNANDEZ Physician Instructions: Reason For Exam: overdose Primary care physician: SALES CLERK SUPERVISOR Hospitalization Reason for admission: s/p suicide attempt Condition: Stable Hospital course: This is a 30-year-old female with no known past medical history presents the emergency department on 06/24 after intentional ingestion of organophosphate in a suicide attempt. On arrival to the emergency department patient was awake with slurred speech however became lethargic was intubated for airway protection. IV atropine and activated charcoal was given in the emergency department. Patient was admitted to the hospitalist service with organo phosphate poisoning, acute hypoxic respiratory failure, urinary tract infection and hypokalemia. She was extubated on 06/26. She was cleared to transfer to floor yesterday. And this morning psych has cleared her follow up outpatient. She will need to followup with her primary care doctor and follow up with outpatient psych services. I spoke with Glendy with [place] [facility] ([place] [facility] is in a meeting) who stated because the poisoning is a couple days ago and her labs are normal then she is cleared for discharge from them. Assessment and Plan Neuro: Major depressive disorder, s/p suicide attempt with organophosphate ingestion -s/p Atropine and Charcoal activated -continue trazodone and lexapro -follow up with outpatient psych services CV: ST, ? hypertension -follow up with primary care physician Pulm: s/p acute hypoxic respiratory failure -Patient was intubated on 06/24 for airway protection and extubated on 06/26 GI: Morbid obesity -Passed speech evaluation -Cardiac diet -Encourage dietary and lifestyle modifications upon discharge : NAD ID: Left lower lobe pneumonia, UTI -Evident on UA, urine culture with no growth today -COVID-19 PCR negative -06/25 CXR with suspected pneumonia -s/p ceftriaxone and azithromycin (06/25-06/27) Endo: Hyperglycemia -A1c 5.8 Heme: NAD Disposition: HOME / SELF CARE / HOMELESS Final Discharge Diagnosis (Prints w/discharge instructions): Major depressive disorder, s/p suicide attempt with organophosphate ingestion, s/p acute hypoxic respiratory failure, Left lower lobe pneumonia, Urinary tract infection Time spent for discharge: 45 Core Measure Documentation - Palliative Care Palliative Care/ Comfort Measures: Not Applicable - Core Measures Any of the following diagnoses?: none Exam - Constitutional Vitals: Temp Pulse Resp BP Pulse Ox 98.6 F 81 18 127/87 96 06/28/21 12:00 06/28/21 13:30 06/28/21 13:30 06/28/21 13:30 06/28/21 13:30 General appearance: Present: no acute distress - EENT Eyes: Present: PERRL, EOM intact ENT: hearing intact, clear oral mucosa, dentition normal - Neck Neck: Present: supple, normal ROM - Respiratory Respiratory effort: normal Respiratory: bilateral: CTA - Cardiovascular Rhythm: regular Heart Sounds: Present: S1 & S2. Absent: systolic murmur, diastolic murmur - Extremities Extremities: no ischemia, pulses intact, pulses symmetrical, No edema, normal temperature, normal color, Full ROM Peripheral Pulses: within normal limits - Abdominal General gastrointestinal: Present: soft, non-tender, non-distended, normal bowel sounds - Integumentary Integumentary: Present: warm - Musculoskeletal Musculoskeletal: strength equal bilaterally - Psychiatric Psychiatric: appropriate mood/affect, cooperative - Neurologic Neurologic: CNII-XII intact, no focal deficits, moves all extremities - Allied Health Allied health notes reviewed: nursing, RT, social work Plan Activity: advance as tolerated Special Instructions: record daily BP diary Follow up with: PRIMARY CARE, [Primary Care Provider] - 7 Days [facility] [place] [Outside] - 7 Days [facility] [Outside] - 7 Days [facility] [Outside] - 7 Days [facility] [Outside] - 7 Days [facility] [Outside] - 7 Days [facility] [Outside] - 7 Days Prescriptions: traZODone [Desyrel] 50 mg PO QHS 30 Days #30 tab Escitalopram [Lexapro] 10 mg PO DAILY 30 Days #30 tablet
[2021-06-28 17:39] VITALS: BP 150/108
== END 2021-06-28 17:25 | disposition home or self-care (01) | DRG 871 ==
LOC: ED 13:21 → CC1 17:07
PROVIDERS: ADMIT Internal Medicine; ATTEND Internal Medicine
PROC: 5A1945Z Respiratory Ventilation, 24-96 Consecutive Hours (ICD-10-PCS; principal; 2021-06-24)
PROC: 0BH17EZ Insertion of Endotracheal Airway into Trachea, Via Natural or Artificial Opening (ICD-10-PCS; 2021-06-24)
PROC: 4A033R1 Measurement of Arterial Saturation, Peripheral, Percutaneous Approach (ICD-10-PCS; 2021-06-25)
DX: A41.9 Sepsis, unspecified organism (principal); J18.9 Pneumonia, unspecified organism; J96.01 Acute respiratory failure with hypoxia; N39.0 Urinary tract infection, site not specified; Z68.41 Body mass index [BMI] 40.0-44.9, adult; T44 Poisoning by, adverse effect of and underdosing of drugs primarily affecting the autonomic nervous system; F32.9 Major depressive disorder, single episode, unspecified; T60.0X2A Toxic effect of organophosphate and carbamate insecticides, intentional self-harm, initial encounter; Y92.89 Other specified places as the place of occurrence of the external cause; F41.9 Anxiety disorder, unspecified; Z82.49 Family history of ischemic heart disease and other diseases of the circulatory system; E87.6 Hypokalemia; R73.9 Hyperglycemia, unspecified; R13.12 Dysphagia, oropharyngeal phase; E66.01 Morbid (severe) obesity due to excess calories; Z20.822 Contact with and (suspected) exposure to COVID-19
CPT/HCPCS: 36415; 36600; 71045; 74018; 80048; 80053; 80307; 80320; 81001; 81025; 82803; 82805; 82962; 83036; 83690; 83735; 84100; 84478; 85025; 85027; 87070; 87086; 87205; 93005; 94002; 94003; 94760; G0378; J3490; J9280; Q0162; G0480; J0330; J0360; J0456; J0461; J0696; J1170; J1650; J2060; J2270; J2405; J2704; J3480; J7030; J7042; U0003